=== PATIENT | male | born 1980 | race Caucasian/White ===

== ENCOUNTER 2021-04-30 11:07 | Outpatient (RCR) | payer OTHER, SELFPAY ==
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
--- NOTE | 2021-06-11 14:59 | PCPTNOTE ---
Mr. Jules attended a total of 2 treatment sessions from 04/30/21 to 05/02/21. He has failed to return to the clinic and has not contacted the clinic regarding his status. He will be discharged from our care. Refer to last daily note for pt. discharge status. Mike Vergara, MPT
== END 2021-05-02 15:27 | disposition home or self-care (01) ==
LOC: CHSPT 11:07
PROVIDERS: PCP Family Medicine; Visit Provider Family Medicine
DX: M54.2 Cervicalgia (principal)
CPT/HCPCS: 97014; 97110; 97140; 97161; G0283

== ENCOUNTER 2021-07-23 14:33 | Outpatient (CLI) | payer OTHER, SELFPAY ==
--- NOTE | ~2021-07-23 | XR_ITS ---
EXAMINATION: XR cervical spine 4-5V DATE: 07/23/2021 14:50 INDICATION: Neck pain. TECHNIQUE: 5 views of cervical spine were obtained. COMPARISON: None. FINDINGS: There is 4 degrees dextrocurvature of cervical spine. There is 2 mm retrolisthesis of C5 on C6. Vertebral body heights are normal. There is mildly decreased disc height at C5-C6. The facet lexi nts are unremarkable. No neural foraminal stenosis or central canal stenosis. No prevertebral soft ti ssue swelling. IMPRESSION: 1. Mild cervical spondylosis. Reviewed, dictated and finalized at location A.
== END 2021-07-23 14:34 | disposition home or self-care (01) ==
LOC: CHSIMG 14:36
PROVIDERS: PCP Family Medicine; Visit Provider Family Medicine
DX: M54.2 Cervicalgia (principal)
CPT/HCPCS: 72050

== ENCOUNTER 2022-01-16 17:00 | Outpatient (CLI) | payer OTHER, SELFPAY ==
--- NOTE | ~2022-01-16 | XR_ITS ---
EXAMINATION: XR chest 2V EXAM DATE: 01/16/2022 17:17 INDICATION: cough w/ SOB + pain in between shoulder blades. TECHNIQUE: Frontal and lateral projections of the chest obtained and reviewed. Comparison is made to prior examination from 08/28/2015. FINDINGS: The lungs are clear. There are no pleural effusions. The cardiomediastinal silhouette is within normal limits. There is no pneumothorax suspected. The bones and soft tissues are unremarkab le. IMPRESSION: Unremarkable chest x-ray exam. Reviewed, dictated and finalized at location G. LLIGENCE DIRECTOR
== END 2022-01-16 17:01 | disposition home or self-care (01) ==
LOC: CHSIMG 17:02
PROVIDERS: PCP Family Medicine; Visit Provider Family Medicine
DX: R05.9 Cough, unspecified (principal)
CPT/HCPCS: 71046

== ENCOUNTER 2023-06-23 14:52 | Outpatient (CLI) | payer OTHER, SELFPAY ==
--- NOTE | ~2023-06-23 | XR_ITS ---
EXAM: XR knee LT 3V DATE: 06/23/2023 15:15 HISTORY: M25.562 - Pain in left knee x1 year; worsening . COMPARISON: 02/15/2009, images only. FINDINGS: Normal mineralization. No fracture or dislocation. No lytic or blastic lesion. Moderate me dial joint space narrowing. Moderate medial and mild lateral and patellofemoral compartment osteophyt osis. Small volume joint fluid. No erosion or periosteal change. Soft tissues within normal limits. IMPRESSION: Tricompartmental left knee osteoarthritis, moderate in the medial compartment. Reviewed, dictated and finalized at location K. IMPRESSION: Tricompartmental left knee osteoarthritis, moderate in the medial c ompartment.
[2023-06-23 16:16] LABS: Basophils Percent Auto 1.2 % (0.0-1.0); Eosinophils Absolute Auto 0.13 K/mm3 (0.02-0.50); Eosinophils Percent Auto 1.6 % (1.0-6.0); Hematocrit 48.3 % (40.0-54.0); Hemoglobin 16.6 g/dL (14.0-18.0); Immature Granulocyte Absolute 0.11 K/mm3 (0.00-0.00); Immature Granulocyte Percent A 1.3 % (0.0-0.0); Lymphocytes Absolute Auto 1.96 K/mm3 (1.10-4.50); Lymphocytes Percent Auto 23.4 % (18.0-42.0); Mean Corpuscular HGB Conc 34.4 g/dL (32.0-36.0); Mean Corpuscular Hemoglobin 32.4 pg (27.0-31.0); Mean Corpuscular Volume 94.3 fL (78.0-102.0); Mean Platelet Volume 10.4 fl (8.7-11.0); Monocytes Absolute Auto 0.82 K/mm3 (0.10-0.90); Monocytes Percent Auto 9.8 % (2.0-11.0); Neutrophils Absolute Auto 5.3 K/mm3 (1.7-7.2); Neutrophils Percent Auto 62.7 % (50.0-70.0); Platelet Count Result 221 K/mm3 (150-420); Red Blood Count 5.12 M/mm3 (4.70-6.10); Red Cell Distribution Width 11.2 % (11.6-14.4); White Blood Count 8.4 K/mm3 (4.8-10.8)
[2023-06-23 16:35] LABS: Alanine Aminotransferase 148 U/L (16-63); Alkaline Phosphatase 138 U/L (46-116); Anion Gap 5 mmol/L (8-16); Aspartate Amino Transferase 68 U/L (15-37); Bilirubin,Total 0.9 mg/dL (0.00-1.00); Blood Urea Nitrogen 11 mg/dL (7-18); Calcium 9.2 mg/dL (8.5-10.1); Carbon Dioxide 33 mmol/L (21-32); Chloride 102 mmol/L (98-108); Cholesterol 214 mg/dL (0-200); Estimated Glomerular Filt Rate > 60; Glucose 145 mg/dL (70-99); HDL Direct 30 mg/dL (40-60); LDL Cholesterol Calculated 103 mg/dL (<130); Osmolality Calculated 292 mOsm/kg (285-295); Potassium 4.3 mmol/L (3.5-5.1); Sodium 140 mmol/L (136-145); Total Protein 7.6 g/dL (6.4-8.2); Triglycerides 404 mg/dL (0-150)
[2023-06-23 16:36] LABS: Thyroid Stimulating Hormone Reflex 1.54 u/IU/mL (0.36-3.74)
[2023-06-23 16:41] LABS: LDL Cholesterol Direct 123 mg/dL (0-130)
== END 2023-06-23 14:53 | disposition home or self-care (01) ==
LOC: CHSIMG 14:53
PROVIDERS: PCP Family Medicine; Visit Provider Family Medicine
DX: M17.12 Unilateral primary osteoarthritis, left knee (principal); F41.1 Generalized anxiety disorder; E11.9 Type 2 diabetes mellitus without complications; M25.562 Pain in left knee
CPT/HCPCS: 36415; 73562; 80053; 80061; 83721; 84443; 85025

== ENCOUNTER 2023-07-18 12:59 | Outpatient (CLI) | payer OTHER, SELFPAY ==
--- NOTE | 2023-08-06 13:09 | WPDPFTINT ---
PFT Procedure Performed PFT Procedure Performed Spirometry with Pre/Post Bronchodilator Plethysmography (Lung Vol) Diffusing Cap (DLCO) Flow Vol Loop PFT Interpretation DOS: 07/18/2023 REQUESTING: Dr. Hever Nuñez REASON FOR TESTING: shortness of breath PULMONARY FUNCTION TESTS Results are reliable and reproducible. Spirometry: FEV1 is 3.27 L, 88%, normal. FVC is 4.11 L, 89% predicted, normal. FEV1/FVC ratio 80%, normal. After bronchodilator there is a 5% increase in FEV1, 3.43 L, 92% predicted. There is a 5% increase in the FVC, 4.31 L, 93% predicted. The ratio is 80%. This is not statistically significant. Lung volumes: Total lung capacity is 6.15 L, 94% predicted, normal. Residual volume is 1.89 L, 96%, normal. RV /TLC is 31%, normal. Airway resistance 159%. This is above normal. Diffusion: DLCO is 31.3, 95% predicted, normal. DLCO/VA is 5.51, 130%, normal. Flow volume loop: Normal. IMPRESSION: This study shows normal spirometry without significant response to bronchodilator, normal lung volumes and normal diffusion. There are no prior studies to compare. Christy Mcgee MD
== END 2023-07-18 13:00 | disposition home or self-care (01) ==
LOC: CHSCARD 13:00
PROVIDERS: PCP Family Medicine; Visit Provider Family Medicine
DX: R06.00 Dyspnea, unspecified (principal); R06.89 Other abnormalities of breathing
CPT/HCPCS: 94060; 94726; 94729

== ENCOUNTER 2023-09-01 10:26 | Outpatient (CLI) | payer OTHER, SELFPAY ==
--- NOTE | 2023-09-01 10:29 | ECHO_ITS ---
Patient Info Name: Vinicio Jules Age: 43 years : 1980 Gender: Male Ht: 70 in Wt: 260 lbs BSA: 2.46 m2 HR: 97 bpm BP: 170 / 95 mmHg Heart Rhythm: Sinus Rhythm Technical Quality: Good Exam Date: 09/01/2023 10:21 AM Exam Location: [facility] Patient Status: Outpatient Admit Date: 09/01/2023 Staff Ordering Physician: Hever Nuñez DO Fiscal Services Director: Dali Bhatti RDCS Attending Provider: Hever Nuñez DO Referring Physician: Savannah HORTA; Exam Type: CA echo doppler color flow Study Info Indications - unspecified right bundle brunch block Complete two-dimensional, color flow and Doppler transthoracic echocardiogram is performed. Summary 1. Complete two-dimensional, color flow and Doppler transthoracic echocardiogram is performed. 2. Left ventricular chamber dimension is normal. 3. Left ventricular systolic function is normal, estimated at 65-70%. 4. There is mild concentric increased left ventricular wall thickness. 5. The left ventricular diastolic function is grade I diastolic dysfunction. 6. E/e' 12 is mildly elevated. 7. There is mild tricuspid valve regurgitation. 8. No pulmonary hypertension, estimated pulmonary arterial systolic pressure is 30 mmHg. 9. There is trivial pericardial effusion. Left Ventricle E/e' 12 is mildly elevated. Left ventricular chamber dimension is normal. Left ventricular systolic function is normal, estimated at 65-70%. There is mild concentric increased left ventricular wall thickness. The left ventricular diastolic function is grade I diastolic dysfunction. Right Ventricle Right ventricular systolic function is normal and with normal TAPSE 3.2 cm. Right ventricular chamber dimension is normal. Left Atria Left atrial chamber dimension is normal. Right Atria Right atrial chamber dimension is normal. Aortic Valve The aortic valve is trileaflet. There is no aortic valve stenosis. There is no aortic valve regurgitation. Pulmonic Valve There is no pulmonic regurgitation. Mitral Valve There is no mitral valve stenosis. There is no mitral valve regurgitation. Tricuspid Valve There is mild tricuspid valve regurgitation. No pulmonary hypertension, estimated pulmonary arterial systolic pressure is 30 mmHg. Pericardium/Pleural There is trivial pericardial effusion. Inferior Vena Cava Normal inferior vena cava with >50% collapse upon inspiration consistent with normal right atrial pressure, 5 mmHg. Aorta The aortic root size at the sinus of Valsalva is normal. Left Ventricular Outflow Tract Name Value Normal LVOT 2D LVOT Diameter 2.0 cm LVOT Doppler LVOT Peak Velocity 97 cm/s LVOT Peak Gradient 3 mmHg LVOT Mean Gradient 2 mmHg LVOT VTI 24 cm LVOT VTI/AV VTI Ratio 0.8 LVOT Stroke Volume 78 ml Pulmonic Valve Name Value Normal RVOT Doppler
== END 2023-09-01 10:27 | disposition home or self-care (01) ==
LOC: CHSIMG 10:27
PROVIDERS: PCP Family Medicine; Visit Provider Family Medicine
DX: R06.89 Other abnormalities of breathing (principal); R06.00 Dyspnea, unspecified; I50.9 Heart failure, unspecified; I45.10 Unspecified right bundle-branch block; I07.1 Rheumatic tricuspid insufficiency
CPT/HCPCS: 93306

== ENCOUNTER 2024-02-03 10:24 | Outpatient (CLI) | payer OTHER, SELFPAY ==
[2024-02-03 10:49] LABS: Basophils Absolute Auto 0.09 K/mm3 (0.00-0.10); Basophils Percent Auto 1.2 % (0.0-1.0); Eosinophils Absolute Auto 0.16 K/mm3 (0.02-0.50); Eosinophils Percent Auto 2.2 % (1.0-6.0); Hematocrit 46.7 % (40.0-54.0); Hemoglobin 16.4 g/dL (14.0-18.0); Immature Granulocyte Absolute 0.09 K/mm3 (0.00-0.00); Immature Granulocyte Percent A 1.2 % (0.0-0.0); Lymphocytes Absolute Auto 1.78 K/mm3 (1.10-4.50); Lymphocytes Percent Auto 24.7 % (18.0-42.0); Mean Corpuscular HGB Conc 35.1 g/dL (32-36); Mean Corpuscular Hemoglobin 31.7 pg (27.0-31.0); Mean Corpuscular Volume 90.2 fL (78.0-102.0); Mean Platelet Volume 9.9 fl (8.7-11.0); Monocytes Absolute Auto 0.74 K/mm3 (0.10-0.90); Monocytes Percent Auto 10.3 % (2.0-11.0); Neutrophils Absolute Auto 4.35 K/mm3 (1.70-7.20); Neutrophils Percent Auto 60.4 % (50.0-70.0); Platelet Count Result 200 K/mm3 (150-420); Red Blood Count 5.18 M/mm3 (4.70-6.10); Red Cell Distribution Width 11.1 % (11.6-14.4); White Blood Count 7.2 K/mm3 (4.8-10.8)
[2024-02-03 12:08] LABS: Alanine Aminotransferase 179 U/L (16-63); Anion Gap 12 mmol/L (8-16); Blood Urea Nitrogen 7 mg/dL (7-18); Calcium 8.7 mg/dL (8.5-10.1); Carbon Dioxide 29 mmol/L (21-32); Chloride 99 mmol/L (98-108); Estimated Glomerular Filt Rate > 60; Potassium 3.6 mmol/L (3.5-5.1); Sodium 140 mmol/L (136-145)
[2024-02-03 12:48] LABS: Alkaline Phosphatase 151 U/L (46-116); Aspartate Amino Transferase 77 U/L (15-37); Folic Acid 14.8 ng/mL (8.6->20); Glucose 279 mg/dL (70-99); Osmolality Calculated 298 mOsm/kg (285-295); Total Protein 7.3 g/dL (6.4-8.2); Vitamin B12 502 pg/mL (193-986)
[2024-02-03 12:53] LABS: Thyroid Stimulating Hormone Reflex 3.18 u/IU/mL (0.36-3.74)
[2024-02-08 22:33] LABS: Vitamin D 25 Hydroxy 12 ng/mL (30-100)
== END 2024-02-03 10:25 | disposition home or self-care (01) ==
LOC: CHSLAB 10:26
PROVIDERS: PCP Family Medicine; Visit Provider Family Medicine
DX: E53.8 Deficiency of other specified B group vitamins (principal); E03.9 Hypothyroidism, unspecified; F41.8 Other specified anxiety disorders
CPT/HCPCS: 36415; 80053; 82306; 82607; 82746; 84443; 85025

== ENCOUNTER 2024-02-06 16:09 | Emergency (ER) | payer OTHER, SELFPAY ==
[2024-02-06 16:10] VITALS: BP 162/125; PULSE 102; RESP 19; TEMP 36.5; O2SAT 95
--- NOTE | 2024-02-06 16:21 | ED.GENADULT ---
HPI - General Adult General Chief complaint: Unspecified <Madhuri Henry MD - Last Filed: 02/07/24 12:22> Stated complaint: high BP <Madhuri Henry MD - Last Filed: 02/07/24 12:22> Time Seen by Provider: 02/06/24 16:21 <Madhuri Henry MD - Last Filed: 02/07/24 12:22> History of Present Illness HPI narrative: Patient is a 43 year old male with history of HTN, anxiety, alcohol use disorder here with high blood pressure reading. He notes that he recently saw his PCP where he was started on multiple medications including lisinopril for his blood pressure. He took the first dose today around noon and went to [facility] to run errands. Patient then took his blood pressure at the machine at [facility] and it was 180/123. He notes that he got afraid that his blood pressure was high and started experiencing some palpitations. This prompted him to come into the ER for evaluation. Currently denying chest pain, shortness of breath. Denies history of alcohol withdrawal, notes he last drank 2 days ago. No history of withdrawal seizures. <Madhuri Henry MD - Last Filed: 02/07/24 12:22> Related Data Allergies/adverse reactions: Allergies Allergy/AdvReac Type Severity Reaction Status Date / Time Penicillins Allergy Severe Hives Verified 02/03/24 07:29 <Madhuri Henry MD - Last Filed: 02/07/24 12:22> Review of Systems Review of Systems: All systems reviewed & are unremarkable except as noted in HPI and below <Madhuri Henry MD - Last Filed: 02/07/24 12:22> [facility] Past Medical History Medical History: Medical History (Updated 02/07/24 @ 00:02 by Vaishali Lagunas) RICH (generalized anxiety disorder) Left breast mass <Madhuri Henry MD - Last Filed: 02/07/24 12:22> Surgical History Surgical History: Surgical History History of colostomy History of colostomy reversal <Madhuri Henry MD - Last Filed: 02/07/24 12:22> Family History Family History: Family History (Updated 06/23/23 @ 14:15 by Bettie Esparza CMA) Father Acute myocardial infarction Grandparent Breast cancer Other Diabetes mellitus Heart disease <Madhuri Henry MD - Last Filed: 02/07/24 12:22> Social History Social History: Social History (Updated 06/23/23 @ 14:19 by Bettie Esparza [facility]) Smoking status: Never smoker Alcohol intake: current Lack of Transportation: No Lack of Food: Never True Current Housing: I Have Housing Concerned About Future Housing: No Difficulty Paying Gas/Electric Bills: No Difficulty Paying for Meds: No Currently Unemployed: YES Education: High School Diploma/GED Difficulty w/ Childcare or Family Care: No <Madhuri Henry MD - Last Filed: 02/07/24 12:22> Exam Narrative: GENERAL: Well-appearing, well-nourished, and in no acute distress. HEAD: Normocephalic, atraumatic. EYES: PERRLA and EOMI. ENT: Nares clear. Mucous membranes moist. NECK: Supple. CHEST: Clear to auscultation. No respiratory distress. HEART: Tachycardia. Normal peripheral pulses. ABDOMEN: Soft, nontender, nondistended. EXTREMITIES: Normal range of motion. No edema. SKIN: Warm, dry, no rash. NEURO: No focal deficits. Alert and oriented x3. PSYCH: Normal mood and affect. <Madhuri Henry MD - Last Filed: 02/07/24 12:22> Course Course Emergency Course: Chart review performed, patient here with high blood pressure readings. He was hypertensive in triage with mild tachycardia, otherwise vitals within normal limits. PCP note from 02/03/2024 reviewed. He had been seen for anxiety, insomnia. He does reportedly drink a pt of vodka and a 6 pack daily. A mammogram was ordered for the breast lump, a colonoscopy was ordered for hematochezia and weight loss. he was started on lisinopril, gabapentin, naltrexone and amitriptyline. Blood pressures during that visit were 150/100 and 145/90. Patient seen evaluated, nontoxic appearing. He has
[2024-02-06 16:30] VITALS: BP 168/113
--- NOTE | 2024-02-06 16:35 | ECG_ITS ---
Measurements Intervals [place] Rate: 95 P: 56 AL: 156 QRS: -39 QRSD: 97 T: 16 QT: 358 QTc: 451 Interpretive Statements SINUS RHYTHM LEFT AXIS DEVIATION INCOMPLETE RIGHT BUNDLE BRANCH BLOCK LEFT VENTRICULAR HYPERTROPHY WITH ST-T CHANGE CANNOT RULE OUT SEPTAL INFARCT, AGE INDETERMINATE BORDERLINE T WAVE ABNORMALITY- ANTEROLAT/INF LEADS ABNORMAL ECG NO PREVIOUS ECG AVAILABLE FOR COMPARISON Electronically Signed On 02-06-2024 16:57:42 CDT by Edilson Estevez D.O.
[2024-02-06 17:00] VITALS: BP 143/102; PULSE 96; RESP 20
[2024-02-06 17:16] VITALS: BP 148/104
[2024-02-06 17:31] VITALS: BP 156/98; PULSE 75; RESP 20; O2SAT 97
== END 2024-02-06 17:31 | disposition home or self-care (01) ==
PROVIDERS: Emergency Provider Family Medicine; PCP Family Medicine
DX: I10 Essential (primary) hypertension (principal); R00.2 Palpitations
CPT/HCPCS: 93005; 99283

== ENCOUNTER 2024-02-23 08:40 | Outpatient (CLI) | payer OTHER, SELFPAY ==
--- NOTE | ~2024-02-23 | MMUS_ITS ---
EXAMINATION: MM diagnostic isaiah LT w naresh, US breast LT limited HISTORY: Palpable left breast abnormality TECHNIQUE: Additional 3-D tomosynthesis images of the left breast were performed and synthetic 2-D im ages were generated. CAD analysis was submitted and interpreted. High resolution Limited left breast ultrasound was performed. COMPARISON: No prior studies for comparison. BREAST PARENCHYMAL COMPOSITION: Not dense: There are scattered areas of fibroglandular density. FINDINGS: MAMMOGRAPHIC FINDINGS: There is bilateral symmetric gynecomastia. No evidence for malignancy in either breast. ULTRASOUND: Limited left breast ultrasound: Normal heterogeneous echotexture without focal solid or cystic mass. IMPRESSION: 1. No evidence for malignancy in the left breast. 2. Routine yearly screening mammogram and regular clinical breast examination are recommended. BI-RADS Category 1: Negative Reviewed, dictated and finalized at location A. IMPRESSION: 1. No evidence for malignancy in the left breast. 2. Routine yearly screening mammogram and regular clinical breast examination a re recommended. BI-RADS Category 1: Negative
== END 2024-02-23 08:41 | disposition home or self-care (01) ==
LOC: CHSIMG 08:41
PROVIDERS: PCP Family Medicine; Visit Provider Family Medicine
DX: N63.23 Unspecified lump in the left breast, lower outer quadrant (principal)
CPT/HCPCS: 76642; 77061; 77065; G0279

== ENCOUNTER 2024-04-21 14:19 | Outpatient (RCR) | payer OTHER, SELFPAY ==
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
--- NOTE | 2024-04-21 15:09 | OPREHPOC ---
Outpatient Therapy Plan of Care This is a Multidisciplinary Plan of Care that may contain components documented by all disciplines (PT, OT, and ST.) PT Problem 1 PT Problem #1 Knowledge Deficit PT Goal 1 Goal Pt. will be independent with a HEP addressing strength and postural awareness Target Visit 2 PT Problem 2 PT Problem #2 Impaired Functional Mobil PT Goal 1 Goal Pt. will demonstrate improve postural awareness in sitting with improved shoulder position noted. Target Visit 8 PT Problem 3 PT Problem #3 Impaired Range of Motion PT Goal 1 Goal Pt. will demonstrate 85 degrees bilateral active cervical rotation. Target Visit 8 PT Problem 4 PT Problem #4 Pain PT Goal 1 Goal Pt. will report being able to sleep throughout the night without pain disturbance. Pt. will report pain levels at 2/10 at worst in a 2 week period.
--- NOTE | 2024-04-29 16:03 | PCPTNOTE ---
Patient cancelled session today. He states his back is hurting, and will maybe be going to the ER.
--- NOTE | 2024-05-10 13:08 | PCPTNOTE ---
Patient cancelled session today. He reports he started a new medication, and is having side effects from it.
--- NOTE | 2024-05-13 11:52 | PCPTNOTE ---
Patient called & cancelled scheduled appointment this date due to [ started a new blood pressure med and is having issues.]
--- NOTE | 2024-05-19 11:45 | PCPTNOTE ---
Patient did not show up for scheduled appointment this date. -Ursula Garza, PT
--- NOTE | 2024-08-09 07:18 | PCPTNOTE ---
Mr. Jules attended a total of 4 treatment sessions from 04/21/24 to 05/06/24. He provided decreasing reports of pain through the duration of his treatment. Treatment had consisted of manual techniques and therapeutic exercise to improve posture, strength, ROM and to decrease pain. He has failed to return to the clinic and will be discharged from our care at this time. Mike Vergara, MPT
== END 2024-05-06 10:45 | disposition home or self-care (01) ==
LOC: CHSPT 14:19
PROVIDERS: Visit Provider Family Medicine
DX: M54.2 Cervicalgia (principal)
CPT/HCPCS: 97110; 97140; 97161

== ENCOUNTER 2024-05-25 10:06 | Emergency (ER) | payer OTHER, SELFPAY ==
--- NOTE | ~2024-05-25 | XR_ITS ---
EXAMINATION: XR knee LT 3V DATE: 05/25/2024 10:37 INDICATION: Medial left knee pain. TECHNIQUE: 3 views of left knee were obtained. COMPARISON: Left knee radiographs 06/23/2023 FINDINGS: Bone alignment is normal. No fracture. There is moderate osteoarthritis of medial compartme nt and mild osteoarthritis of lateral and patellofemoral compartments. There is a small knee joint ef fusion. There is an loose body in the knee joint posteriorly. IMPRESSION: 1. Moderate left knee osteoarthritis. 2. Small left knee joint effusion with loose body. Reviewed, dictated and finalized at location A.
[2024-05-25 10:11] VITALS: BP 168/111; PULSE 103; RESP 16; TEMP 36.8; O2SAT 97
[2024-05-25 10:22] VITALS: BP 168/111; PULSE 103; RESP 16; TEMP 36.8; O2SAT 97
--- NOTE | 2024-05-25 10:28 | ED.EXTPRO ---
HPI - Extremity Problem General Chief complaint: Extremity Problem,Nontraumatic Stated complaint: left knee pain Time Seen by Provider: 05/25/24 10:08 Source: patient Mode of arrival: ambulatory Limitations: no limitations History of Present Illness HPI Narrative: Patient is a 43-year-old male with right elbow, left knee and right ankle pains. He has seen his primary doctor for some of these complaints. He also is noncompliant with his blood pressure medicine. No particular recent injury to these areas. MD Complaint: extremity pain Onset (ago): week(s) (2) Pain Consistency: constant Location: left, lower extremity and knee Severity scale (1-10): 6 Quality: burning, stabbing, aching and sharp Radiation: none Relieving factors: nothing Exacerbating factors: range of motion, walking and exertion Associated symptoms: denies other symptoms Related Data Allergies Allergy/AdvReac Type Severity Reaction Status Date / Time Penicillins Allergy Severe Hives Verified 05/25/24 10:10 Review of Systems Review of Systems: All systems reviewed & are unremarkable except as noted in HPI and below Constitutional: Constitutional: Reports no additional constitutional complaints Eyes: Eyes: Reports no additional eye complaints ENT: Reports system reviewed and no additional complaints, except as documented Cardiovascular: Cardiovascular: Reports no additional cardiovascular complaints Respiratory: Respiratory: Reports no additional respiratory complaints Gastrointestinal: Gastrointestinal: Reports no additional gastrointestinal complaints Genitourinary: Genitourinary: Reports no additional male genitourinary complaints Musculoskeletal: Musculoskeletal: Reports no additional musculoskeletal complaints Integumentary/Breasts: Skin/Breast: Reports system reviewed and no additional complaints, except as docu Neurologic: Reports system reviewed and no additional complaints, except as documented Psychiatric: Psychiatric: Reports no additional psychiatric complaints Endocrine: Endocrine: Reports no additional endocrine complaints Hematologic/Lymphatic: Hematologic/Lymphatic: Reports no additional hematologic/lymphatic complaints Allergic/Immunologic: Allergic/Immunologic: Reports no additional allergic/immunologic complaints PMF Past Medical History Medical History RICH (generalized anxiety disorder) Left breast mass Surgical History Surgical History History of colostomy History of colostomy reversal Family History Family History Father Acute myocardial infarction Grandparent Breast cancer Other Diabetes mellitus Heart disease Social History Social History Smoking status: Never smoker Alcohol intake: current Lack of Transportation: No Lack of Food: Never True Current Housing: I Have Housing Concerned About Future Housing: No Difficulty Paying Gas/Electric Bills: No Difficulty Paying for Meds: No Currently Unemployed: YES Education: High School Diploma/GED Difficulty w/ Childcare or Family Care: No Exam Const: General: healthy appearing Nutritional Appearance: well nourished Orientation/consciousness: patient oriented x3 HENMT: Head: normal to inspection Ears: external ears normal Face/Nose/Sinus: Normal external nose present Eyes: Conjunctivae: conjunctivae normal Pupils: Equal, round and reactive pupils present EOM: EOMs intact bilaterally Neck: Neck: normal visual inspection Chest: Chest palpation & inspection: normal inspection of the chest Resp: Effort & Inspection: normal respiratory effort and not labored Auscultation: clear to auscultation bilaterally Cardio: Rate: regular rate Rhythm: regular rhythm Heart sounds: no murmurs GI: Inspection: non-dis
[2024-05-25] MEDS: KETOROLAC (*BKC) 60 MG/2 ML VIAL IM (10:39)
[2024-05-25 11:05] VITALS: BP 138/96; PULSE 75; RESP 18; O2SAT 98
== END 2024-05-25 11:05 | disposition home or self-care (01) ==
PROVIDERS: Emergency Provider Emergency Medicine; PCP Family Medicine
DX: M77.51 Other enthesopathy of right foot and ankle (principal); M70.52 Other bursitis of knee, left knee; M70.31 Other bursitis of elbow, right elbow
CPT/HCPCS: 73562; 96372; 99283; J1885

== ENCOUNTER 2024-06-18 12:17 | Emergency (ER) | payer OTHER, SELFPAY ==
[2024-06-18 12:17] VITALS: BP 164/108; PULSE 95; RESP 17; TEMP 36.4; O2SAT 97
--- NOTE | 2024-06-18 12:41 | PC.NURSE ---
Patient states he is unsure what medications he actually suppose to be on at this time. RN spoke with Dr. Velasco office to confirm medications. Patient is suppose to be taking his metoprolol 25mg BID. and lisinopril/HCTZ 20/25 1 tablet daily. Patient is unsure if he threw away his Lisinopril/HCTZ away. Per Dr. Velasco office tell patient to let them know if he needs a refill and they will call it in. Patient made aware and verbalized understanding. ERP Dr. Almanzar made aware of findings.
[2024-06-18 12:45] VITALS: BP 147/108; PULSE 76; RESP 16; O2SAT 95
--- NOTE | 2024-06-18 12:56 | ED.EXTPRO ---
HPI - Extremity Problem General Chief complaint: Extremity Problem,Nontraumatic Stated complaint: knee pain, HTN Time Seen by Provider: 06/18/24 12:18 Source: patient Mode of arrival: ambulatory Limitations: no limitations History of Present Illness HPI Narrative: patient has recurrent left knee pain. He did not take all the medicine as prescribed last visit. Also he is noncompliant with his blood pressure medicine. He is requesting a few days off work to relax with the left lower extremity pain. He asked for pain control today too. MD Complaint: extremity pain Onset (ago): week(s) (1) Pain Consistency: constant Location: left and knee Severity scale (1-10): 6 Quality: sharp Radiation: none Relieving factors: nothing Exacerbating factors: nothing Associated symptoms: denies other symptoms Related Data Allergies Allergy/AdvReac Type Severity Reaction Status Date / Time Penicillins Allergy Severe Hives Verified 06/18/24 12:17 Review of Systems Review of Systems: All systems reviewed & are unremarkable except as noted in HPI and below Constitutional: Constitutional: Reports no additional constitutional complaints Eyes: Eyes: Reports no additional eye complaints ENT: Reports system reviewed and no additional complaints, except as documented Cardiovascular: Cardiovascular: Reports no additional cardiovascular complaints Respiratory: Respiratory: Reports no additional respiratory complaints Gastrointestinal: Gastrointestinal: Reports no additional gastrointestinal complaints Genitourinary: Genitourinary: Reports no additional male genitourinary complaints Musculoskeletal: Musculoskeletal: Reports no additional musculoskeletal complaints Integumentary/Breasts: Skin/Breast: Reports system reviewed and no additional complaints, except as docu Neurologic: Reports system reviewed and no additional complaints, except as documented Psychiatric: Psychiatric: Reports no additional psychiatric complaints Endocrine: Endocrine: Reports no additional endocrine complaints Hematologic/Lymphatic: Hematologic/Lymphatic: Reports no additional hematologic/lymphatic complaints Allergic/Immunologic: Allergic/Immunologic: Reports no additional allergic/immunologic complaints PMFSH Past Medical History Medical History RICH (generalized anxiety disorder) Left breast mass Surgical History Surgical History History of colostomy History of colostomy reversal Family History Family History Father Acute myocardial infarction Grandparent Breast cancer Other Diabetes mellitus Heart disease Social History Social History Smoking status: Never smoker Alcohol intake: current Lack of Transportation: No Lack of Food: Never True Current Housing: I Have Housing Concerned About Future Housing: No Difficulty Paying Gas/Electric Bills: No Difficulty Paying for Meds: No Currently Unemployed: YES Education: High School Diploma/GED Difficulty w/ Childcare or Family Care: No Exam Const: General: healthy appearing Nutritional Appearance: well nourished Orientation/consciousness: patient oriented x3 HENMT: Head: normal to inspection Ears: external ears normal Face/Nose/Sinus: Normal external nose present Eyes: Conjunctivae: conjunctivae normal Pupils: Equal, round and reactive pupils present EOM: EOMs intact bilaterally Neck: Neck: normal visual inspection Chest: Chest palpation & inspection: normal inspection of the chest Resp: Effort & Inspection: normal respiratory effort and not labored Auscultation: clear to auscultation bilaterally Cardio: Rate: regular rate Rhythm: regular rhythm Heart sounds: no murmurs GI: Inspection: non-distended GI Palp: Yes Soft to palpation, No Te
[2024-06-18] MEDS: KETOROLAC (*BKC) 60 MG/2 ML VIAL IM (12:58)
[2024-06-18 13:17] VITALS: BP 147/91; PULSE 75; RESP 18; TEMP 36.7; O2SAT 97
== END 2024-06-18 13:17 | disposition home or self-care (01) ==
PROVIDERS: Emergency Provider Emergency Medicine; PCP Family Medicine
DX: M70.52 Other bursitis of knee, left knee (principal)
CPT/HCPCS: 96372; 99283; J1885

== ENCOUNTER 2024-06-23 17:05 | Outpatient (CLI) | payer BC, SELFPAY ==
--- NOTE | ~2024-06-23 | XR_ITS ---
XR ankle RT min 3V Ordering provider: Julio Cesar Sequeira APRN History: . M25.571 - Pain in right ankle and joints of right foot . Comparison: None. FINDINGS: BONES: No acute fracture or dislocation. Postoperative changes in the medial malleolus. JOINT SPACES: Normal. SOFT TISSUES: Normal. IMPRESSION: No acute osseous abnormality of the right ankle. Reviewed, dictated and finalized at location A.
--- NOTE | ~2024-06-23 | XR_ITS ---
EXAMINATION: XR lumbar spine 2-3V DATE: 06/23/2024 17:40 INDICATION: Low back pain TECHNIQUE: Anteroposterior and lateral views of the lumbar spine, and cone-down lateral view of the l umbosacral junction were obtained. COMPARISON: None. FINDINGS: 7 degrees lumbar levocurvature with minimal rotational component. There is straightening of the sugey l lumbar lordosis. Vertebral body heights are normal. Mild disc height loss at L5-S1 and at the right side of L4-L5. Mild to moderate lower lumbar facet osteoarthritis. IMPRESSION: 1. Mild lumbar levocurvature with mild lower lumbar spondylosis. Reviewed, dictated and finalized at location A.
== END 2024-06-23 17:06 | disposition home or self-care (01) ==
PROVIDERS: PCP Family Medicine; Visit Provider Nurse Practitioner Family
DX: M54.50 Low back pain, unspecified (principal); M25.571 Pain in right ankle and joints of right foot; M43.06 Spondylolysis, lumbar region; M41.86 Other forms of scoliosis, lumbar region
CPT/HCPCS: 72100; 73610

== ENCOUNTER 2024-07-29 15:51 | Outpatient (CLI) | payer BC, SELFPAY ==
[2024-07-29 16:02] LABS: Hemoglobin 15.1 g/dL (14.0-18.0); Mean Corpuscular HGB Conc 35.1 g/dL (32-36); Mean Corpuscular Hemoglobin 32.3 pg (27.0-31.0); Mean Corpuscular Volume 91.9 fL (78.0-102.0); Mean Platelet Volume 10.3 fl (8.7-11.0); Platelet Count Result 244 K/mm3 (150-420); Red Blood Count 4.68 M/mm3 (4.70-6.10); Red Cell Distribution Width 10.9 % (11.6-14.4); White Blood Count 9.9 K/mm3 (4.8-10.8)
[2024-07-30 09:11] LABS: Alanine Aminotransferase 66 U/L (6-50); Albumin Level 4.4 g/dL (3.5-5.1); Alkaline Phosphatase 84 U/L (38-126); Anion Gap 10 mmol/L (4-12); Aspartate Amino Transferase 46 U/L (17-59); Bilirubin,Total 1.2 mg/dL (0.2-1.3); Blood Urea Nitrogen 16 mg/dL (9-20); Calcium 9.8 mg/dL (8.4-10.2); Carbon Dioxide 31 mmol/L (22-30); Chloride 97 mmol/L (98-107); Estimated Glomerular Filt Rate > 60; Glucose 195 mg/dL (65-110); Osmolality Calculated 292 mOsm/kg (285-295); Potassium 3.5 mmol/L (3.4-5.0); Sodium 138 mmol/L (137-145)
== END 2024-07-29 15:52 | disposition home or self-care (01) ==
LOC: CHSLAB 15:53
PROVIDERS: PCP Nurse Practitioner Family; Visit Provider Nurse Practitioner Family
DX: R74.8 Abnormal levels of other serum enzymes (principal); F10.10 Alcohol abuse, uncomplicated
CPT/HCPCS: 36415; 80053; 85027

== ENCOUNTER 2024-08-19 14:49 | Outpatient (CLI) | payer BC, SELFPAY ==
--- NOTE | ~2024-08-19 | US_ITS ---
EXAMINATION: US abdomen limited DATE: 08/19/2024 15:12 INDICATION: R74.8 - Abnormal levels of other serum enzymes TECHNIQUE: Multiple grayscale and Doppler ultrasound images of limited portions of the abdomen were o btained. COMPARISON: None available. FINDINGS: The visualized portions of the pancreas are normal. The liver is normal size, with increase d echogenicity. No surface nodularity. Normal hepatopetal flow in the main portal vein. The gallbladd er is normal with no abnormal wall thickening, pericholecystic fluid or stones. The common bile duct measures 4 mm. There was no sonographic Hernandez sign. IMPRESSION: Echogenic liver, most commonly due to steatosis but also can be seen with hepatitis and fibrosis. Reviewed, dictated and finalized at location K. IMPRESSION: Echogenic liver, most commonly due to steatosis but also can be seen with hepat itis and fibrosis.
== END 2024-08-19 14:50 | disposition home or self-care (01) ==
LOC: CHSIMG 14:50
PROVIDERS: PCP Family Medicine; Visit Provider Nurse Practitioner Family
DX: F10.10 Alcohol abuse, uncomplicated (principal); R74.8 Abnormal levels of other serum enzymes; R93.2 Abnormal findings on diagnostic imaging of liver and biliary tract
CPT/HCPCS: 76705

== ENCOUNTER 2024-08-26 09:13 | Emergency (ER) | payer BC, SELFPAY ==
[2024-08-26 09:14] VITALS: BP 136/85; PULSE 69; RESP 18; TEMP 36.4; O2SAT 96
--- NOTE | 2024-08-26 09:21 | PC.NURSE ---
covid test administered sent to lab
[2024-08-26 09:22] VITALS: O2SAT 97
[2024-08-26 10:15] LABS: Strep Group A RT-PCR NOT DETECTED (Negative)
[2024-08-26 10:24] LABS: SARS-CoV-2 RNA PCR Negative (Negative)
--- NOTE | 2024-08-26 10:27 | ED.URI ---
HPI - URI/Sore Throat General Chief Complaint: Upper Respiratory Infection Stated Complaint: sick Time Seen by Provider: 08/26/24 09:48 Source: patient Mode of arrival: ambulatory Limitations: no limitations History of Present Illness HPI Narrative: This is a 44-year-old male with a 2 day history of cough congestion clear nasal discharge no fever chills no nausea vomiting with no shortness of breath no audible wheezing. MD elicited complaint: cough, sore throat, nasal congestion and sinus pain Onset (ago): day(s) Consistency: constant Severity: mild Related Data Allergies Allergy/AdvReac Type Severity Reaction Status Date / Time Penicillins Allergy Severe Hives Verified 08/20/24 11:27 Review of Systems Review of Systems: All systems reviewed & are unremarkable except as noted in HPI and below PMFSH Past Medical History Medical History Bowel perforation Depression with anxiety Elevated liver enzymes Epigastric pain ETOH abuse RICH (generalized anxiety disorder) GERD (gastroesophageal reflux disease) Hematochezia Left breast mass RBBB (right bundle branch block) Uncontrolled hypertension Surgical History Surgical History History of colostomy History of colostomy reversal Family History Family History Father Acute myocardial infarction in sleep from heart attack Grandparent Breast cancer Other Colon cancer Other Diabetes mellitus Heart disease Social History Social History Smoking packs per day: 1 Smoking cigarettes per day: 20.0 Years smoked: 5 Smoking pack-years: 5.00 Smoking status: Former smoker Tobacco type: cigarettes Alcohol intake: current Drinks per week: 14 Alcohol use details: DRINKS ON WEEKENDS, MULTIPLE BEER AND VODKA, PRIOR PT DRANK DAILY Substance use: never Substance use type: does not use Lack of Transportation: No Lack of Food: Never True Current Housing: I Have Housing Concerned About Future Housing: No Difficulty Paying Gas/Electric Bills: No Difficulty Paying for Meds: No Currently Unemployed: YES Education: High School Diploma/GED Difficulty w/ Childcare or Family Care: No Living arrangements: with family Spiritual care concerns: No Exam Const: General: healthy appearing and no acute distress Nutritional Appearance: well nourished Orientation/consciousness: patient oriented x3 Limitations: no limitations HENMT: Head: normal to inspection Other: Sinus congestion and pressure with postnasal drip Neck: Neck: normal visual inspection Chest: Chest palpation & inspection: normal inspection of the chest Resp: Effort & Inspection: normal respiratory effort Auscultation: clear to auscultation bilaterally Cardio: Rate: regular rate Rhythm: regular rhythm GI: GI Palp: Yes Soft to palpation Auscultation: normal bowel sounds Course Course Emergency Course: strep negative, COVID RSV and influenza reviewed with patient Vital Signs Vital signs: Vital Signs Temperature 36.4 C L 08/26/24 09:14 Pulse Rate 69 08/26/24 09:14 Respiratory Rate 18 08/26/24 09:14 Blood Pressure 136/85 08/26/24 09:14 Pulse Oximetry 96 08/26/24 09:14 Oxygen Delivery Room Air 08/26/24 09:14 Temperature 36.4 C L 08/26/24 10:41 Pulse Rate 69 08/26/24 10:41 Respiratory Rate 18 08/26/24 10:41 Blood Pressure 136/85 08/26/24 10:41 Pulse Oximetry 97 08/26/24 10:41 Oxygen Delivery Room Air 08/26/24 10:41 MDM - URI/Sore Throat Lab Data Labs: Lab Results 08/26/24 Range/Units 09:23 Influenza A (RT-PCR) Negative (Negative) Influenza B (RT-PCR) Negative (Negative) RSV (RT-PCR) Negative (Negative) SARS-CoV-2 RNA (RT-PCR) Negative (Negative)
[2024-08-26 10:32] LABS: Influenza A QL RT-PCR Negative (Negative); Influenza B QL RT-PCR Negative (Negative); RSV RNA, RT-PCR Negative (Negative)
[2024-08-26 10:41] VITALS: BP 136/85; PULSE 69; RESP 18; TEMP 36.4; O2SAT 97
== END 2024-08-26 10:41 | disposition home or self-care (01) ==
PROVIDERS: Emergency Provider Emergency Medicine; PCP Family Medicine
DX: J32.9 Chronic sinusitis, unspecified (principal); I10 Essential (primary) hypertension; Z87.891 Personal history of nicotine dependence; Z20.822 Contact with and (suspected) exposure to COVID-19
CPT/HCPCS: 87637; 87651; 99283

== ENCOUNTER 2024-09-03 02:57 | Day surgery (SDC) | payer BC, SELFPAY ==
[2024-08-20 11:44] VITALS: BMI 32.8
[2024-09-03 10:47] VITALS: BP 140/85; PULSE 71; RESP 20; TEMP 36.1; O2SAT 97; BMI 31.7
[2024-09-03] MEDS: LACTATED RINGERS 1,000 ML 150 ML IV CONT (10:57)
--- NOTE | 2024-09-03 12:17 | PM.HPGS ---
History of Present Illness History of Present Illness Consent: Risks, benefits, and alternatives have been discussed and questions answered. Patient agrees to proceed with procedure. Chief complaint: Melena, Perforation intestine, epigastric pain Narrative: Vinicio Jules Jr. is a 44 year old male here for first egd and colonoscopy, had bowel perforation years ago. Recent blood in stools and burping, using tums prn Review of Systems Review of Systems: All systems reviewed & are unremarkable except as noted in HPI and below PMFSH Past Medical History Medical History (Updated 09/03/24 @ 12:18 by Deyvi Kline MD) Bowel perforation Depression with anxiety Elevated liver enzymes Epigastric pain ETOH abuse Functional burping disorder RICH (generalized anxiety disorder) GERD (gastroesophageal reflux disease) Hematochezia Left breast mass RBBB (right bundle branch block) Uncontrolled hypertension Surgical History Surgical History History of colostomy History of colostomy reversal Family History Family History Father Acute myocardial infarction in sleep from heart attack Grandparent Breast cancer Other Colon cancer Other Diabetes mellitus Heart disease Social History Social History Smoking packs per day: 1 Smoking cigarettes per day: 20.0 Years smoked: 5 Smoking pack-years: 5.00 Smoking status: Former smoker Tobacco type: cigarettes Alcohol intake: current Drinks per week: 14 Alcohol use details: DRINKS ON WEEKENDS, MULTIPLE BEER AND VODKA, PRIOR PT DRANK DAILY Substance use: never Substance use type: does not use Lack of Transportation: No Lack of Food: Never True Current Housing: I Have Housing Concerned About Future Housing: No Difficulty Paying Gas/Electric Bills: No Difficulty Paying for Meds: No Currently Unemployed: YES Education: High School Diploma/GED Difficulty w/ Childcare or Family Care: No Living arrangements: with family Spiritual care concerns: No Meds Home Medications and Allergies Home Medications Medication Instructions Recorded Confirmed Type lisinopril 20 1 tablet PO DAILY #90 tabs 06/25/24 09/03/24 Rx mg-hydrochlorothiazide 25 mg tablet metoprolol tartrate 25 mg tablet 20 mg PO BID 09/03/24 09/03/24 History multivit with minerals-iron 18 1 tablet PO DAILY 09/03/24 09/03/24 History mg-folic ac 400 mcg-vit K 25 mcg tablet (Adults Multivitamin) Allergies Allergy/AdvReac Type Severity Reaction Status Date / Time Penicillins Allergy Severe Hives Verified 09/03/24 10:45 Vital Signs Vital Signs - 24 hr 09/03/24 10:47 Temperature 96.9 F L Pulse Rate 71 Respiratory Rate 20 Blood Pressure 140/85 Pulse Oximetry 97 Oxygen Delivery Room Air Exam Const: General: comfortable and no acute distress HENMT: Face/Nose/Sinus: Normal nares present Eyes: General: appearance normal, both eyes and all related structures Neck: Neck: no JVD Resp: Auscultation: clear to auscultation bilaterally Cardio: Rate: regular rate Rhythm: regular rhythm GI: Inspection: non-distended GI Palp: Yes Soft to palpation Skin: General skin exam: normal color Neuro: General: gait normal Speech: normal speech Extrem: General: normal to inspection Psych: Mental Status: mental status grossly normal Assessment and Plan Assessment and plan (1) GERD (gastroesophageal reflux disease): Code(s): K21.9 - Gastro-esophageal reflux disease without esophagitis Status: Acute Assessment and Plan: egd (2) Hematochezia: Code(s): K92.1 - Melena Status: Acute Assessment and Plan: colonoscopy (3) Functional burping disorder: Code(s): R14.2 - Eructation Status: Acute
--- NOTE | 2024-09-03 12:18 | WPDANESEPPF ---
Anes - Initial Pre Proc Eval Procedure: Operation Date: 09/03/24 12:30 Proposed Procedures p Esophagogastroduodenoscopy & Colonoscopy - Deyvi Kline MD Date/Time: 09/03/24 12:18 Surgeon: Deyvi Kline MD Pre Op Diagnosis: Melena, Perforation intestine, epigastric pain Patient Data Age: 44 Gender: M Height: 1.78 m Weight: 100.4 kg Last Vital Signs Temp 96.9 F L 09/03/24 10:47 Pulse 71 09/03/24 10:47 Resp 20 09/03/24 10:47 BP 140/85 09/03/24 10:47 Pulse Ox 97 09/03/24 10:47 O2 Del Method Room Air 09/03/24 10:47 Allergies Allergy/AdvReac Type Severity Reaction Status Date / Time Penicillins Allergy Severe Hives Verified 09/03/24 10:45 Home Medications Medication Instructions Recorded Confirmed Type lisinopril 20 1 tablet PO DAILY #90 tabs 06/25/24 09/03/24 Rx mg-hydrochlorothiazide 25 mg tablet metoprolol tartrate 25 mg tablet 20 mg PO BID 09/03/24 09/03/24 History multivit with minerals-iron 18 1 tablet PO DAILY 09/03/24 09/03/24 History mg-folic ac 400 mcg-vit K 25 mcg tablet (Adults Multivitamin) Patient hx anesthesia problems: none Family hx anesthesia problems: none Results Review: All pre-operative results and documents have been reviewed as part of the pre-operative evaluation. [facility] Past Medical History Medical History Bowel perforation Depression with anxiety Elevated liver enzymes Epigastric pain ETOH abuse RICH (generalized anxiety disorder) GERD (gastroesophageal reflux disease) Hematochezia Left breast mass RBBB (right bundle branch block) Uncontrolled hypertension Surgical History Surgical History History of colostomy History of colostomy reversal Family History Family History Father Acute myocardial infarction in sleep from heart attack Grandparent Breast cancer Other Colon cancer Other Diabetes mellitus Heart disease Social History Social History Smoking packs per day: 1 Smoking cigarettes per day: 20.0 Years smoked: 5 Smoking pack-years: 5.00 Smoking status: Former smoker Tobacco type: cigarettes Alcohol intake: current Drinks per week: 14 Alcohol use details: DRINKS ON WEEKENDS, MULTIPLE BEER AND VODKA, PRIOR PT DRANK DAILY Substance use: never Substance use type: does not use Lack of Transportation: No Lack of Food: Never True Current Housing: I Have Housing Concerned About Future Housing: No Difficulty Paying Gas/Electric Bills: No Difficulty Paying for Meds: No Currently Unemployed: YES Education: High School Diploma/GED Difficulty w/ Childcare or Family Care: No Living arrangements: with family Spiritual care concerns: No Anes - Eval Final PreProcedure Day of Procedure 09/03/24 12:18 Patient weight: normal Heart: regular rate and rhythm Lungs: clear to auscultation Airway: Mallampati scale class II Neurological: alert and oriented Last oral intake: >/= 8 hours ASA classification: III Emergent: no Anesthetic plan: proceed Anesthesia type and monitoring: general GIVS and standard monitoring Results Review: All pre-operative results and documents have been reviewed as part of the pre-operative evaluation. Informed Consent: The patient's anesthetic plan and its attendant risks and benefits were discussed with the patient/family/POA. Questions were solicited and answers provided to the satisfaction of the patient/family/POA.
--- NOTE | 2024-09-03 12:33 | SUR.OPER ---
EGD start 1224 end 1226, Colonoscopy start 1230
[2024-09-03 12:44] VITALS: BP 92/50; PULSE 80; RESP 22; O2SAT 95
[2024-09-03 12:54] VITALS: BP 108/58; PULSE 72; RESP 20; O2SAT 97
[2024-09-03 13:04] VITALS: BP 111/85; PULSE 67; RESP 22; O2SAT 97
== END 2024-09-03 13:20 | disposition home or self-care (01) ==
PROVIDERS: PCP Family Medicine; Referring Provider Nurse Practitioner Family; Visit Provider Internal Medicine Gastroenterology
PROC: 0DJ08ZZ Inspection of Upper Intestinal Tract, Via Natural or Artificial Opening Endoscopic (ICD-10-PCS; CPT 43235; principal; 2024-09-03 12:30)
DX: D12.5 Benign neoplasm of sigmoid colon (principal); D12.0 Benign neoplasm of cecum; K64.8 Other hemorrhoids; K21.00 Gastro-esophageal reflux disease with esophagitis, without bleeding; I10 Essential (primary) hypertension; Z87.891 Personal history of nicotine dependence; Z87.19 Personal history of other diseases of the digestive system
CPT/HCPCS: 45385; 43239; 88305; J2003; J2704; J7120

== ENCOUNTER 2025-02-17 07:19 | Outpatient (CLI) | payer BC, SELFPAY ==
--- NOTE | ~2025-02-17 | MR_ITS ---
EXAMINATION: MR cervical spine wo con DATE: 02/17/2025 08:33 INDICATION: Cervical radiculopathy TECHNIQUE: Magnetic resonance imaging (MRI) of the cervical spine was performed without intravenous c ontrast. Sequences included sagittal T2-weighted FSE, sagittal T2-weighted FS FSE, sagittal T1-weight ed FSE, axial MERGE and axial T2-weighted FSE. COMPARISON: None FINDINGS: Evaluation mildly limited by motion artifact predominantly on the axial images. Bone alignment is nor mal. Vertebral body heights are normal. Bone marrow signal intensity is normal. Mild disc height lo ss at C5-C6. Cord signal intensity is normal. Cervical soft tissues are unremarkable. The following d isc levels are specifically discussed: C2-C3: The disc does not extend beyond the endplate margin. There is no uncovertebral joint osteoarth ritis. There is no facet joint osteoarthritis. There is no neural foraminal stenosis. There is no lynn tral canal stenosis. C3-C4: Disc is not extend beyond the endplate margin. There is mild bilateral uncovertebral joint ost eoarthritis. There is mild bilateral facet joint osteoarthritis. There is mild bilateral neural enrique inal stenosis. There is no central canal stenosis. C4-C5: Suggestion of annular fissure and small right paracentral disc protrusion. There is mild left and moderate right uncovertebral joint osteoarthritis. There is mild right and moderate left facet ronda int osteoarthritis. There is mild left and mild to moderate right neural foraminal stenosis. There is mild central canal stenosis. C5-C6: Disc is bulging. There is mild left and moderate right uncovertebral joint osteoarthritis. The re is mild right and mild to moderate left facet joint osteoarthritis. There is moderate bilateral ne ural foraminal stenosis. There is mild central canal stenosis. C6-C7: Small right paracentral disc protrusion. There is mild bilateral uncovertebral joint osteoarth ritis. There is mild bilateral facet joint osteoarthritis. There is mild bilateral neural foraminal s tenosis. There is minimal central canal stenosis. C7-T1: The disc does not extend beyond the endplate margin. There is no uncovertebral joint osteoarth ritis. There is mild bilateral facet joint osteoarthritis. There is no neural foraminal stenosis. The re is no central canal stenosis. IMPRESSION: 1. Mild cervical spondylosis. Reviewed, dictated and finalized at location B.
--- OUTSIDE RECORDS SUMMARY | 2025-02-17 07:25 | XMS_ITS | Encounter Summary ---
Author Organization [facility] Address [address] [place] [address] Phone Care Team Providers Care Rn Community Name Role Phone Arcadio Francis MD Primary Care Provider [phone] Reason for Visit * Reason Onset Date Comments Medication Refill 01/31/2025 Encounter Details Date Type Department Care Team (Late st Contact Info) Description 01/31/2025 Refill [facility] - Internal Medicine - [place] [address] [facility] [place] [id number] Arcadio Francis MD [address] [place] [address] Medication Refill Social History Tobacco Use Types Packs/Day Years Used Date Smoking Tobacco: Every Day Cigarettes Passive Smoke Exposure: Current Smokeless Tobacco: Never Alcohol Use Standard Drinks/Week Comments Yes 2 (1 standard drink = 0.6 oz pur e alcohol) [facility] Utilities Answer Date Recorded In the past 12 months has [employer], gas, oil, or water [employer] threatened to shut off services in your home? No 12/16/2024 Social Connection and Isolation Panel [NHANES] A nswer Date Recorded In a typical week, how many times do you talk on the phone with family, friends, or neighbors? Once a week 12/16/2024 How often do you get together with friends or re latives? Once a week 12/16/2024 How often do you attend sabianism or sabianism serv ices? Never 12/16/2024 Do you belong to any clubs o r organizations such as sabianism groups, unions, fraternal or athletic groups, or school groups? No 12/16/2024 How often do you attend meet ings of the clubs or organizations you belong to? Never 12/16/2024 Are you , , di vorced, , never , or living with a partner? 12/16/2024 AUDIT-C Answer Date Recorded Q1: How often do you have a drink containing alc ohol? 2-4 times a month 12/16/2024 Q2: How many drinks containi ng alcohol do you have on a typical day when you are drinking? 5 or 6 12/16/2024 Q3: How often do you have si x or more drinks on one occasion? Never 12/16/2024 Overall Financial Resource Strain (CARDIA) Answe r Date Recorded How hard is it for you to pa y for the very basics like food, housing, medical care, and heating? Somewhat hard 12/16/2024 PHQ-2 Answer Date Recorded Total Score - Questions 1-9 0 11/25 [facility] - Occupational Stress Questionnaire Answer Date Recorded Do you feel stress - tense, restless, nervous, or anxious, or unable to sleep at night because your mind is troubled all the time - these days? To some extent 12/16/2024 Exercise Vital Sign Answer Date Recorde d On average, how many days pe r week do you engage in moderate to strenuous exercise (like a brisk walk)? 5 days 12/16/2024 On average, how many minutes do you engage in exercise at this level? 150+ min 12/16/2024 Hunger Vital Sign Answer Date Recorded Within the past 12 months, y ou worried that your food would run out before you got the money to buy more. Sometimes true Within the past 12 months, t he food you bought just didn't last and you didn't have money to get more. Never true PRAPARE - Transportation Answer Date Re corded In the past 12 months, has l ack of transportation kept you from medical appointments or from getting medications? No 11/25 In the past 12 months, has l ack of transportation kept you from meetings, work, or from getting things needed for daily living? No 12/16/2024 Housing Stability Vital Sign Answer Yogesh e Recorded In the last 12 months, was t here a time when you were not able to pay the mortgage or rent on time? Yes 12/16/2024 In the past 12 months, how m any times have you moved where you were living? 1 12/16/2024 At any time in the past 12 m [facility], were you homeless or living in a fpc (including now)? No 12/16/2024 Sexually Active Control Partners Comments Yes Sex and Gender Information Value Date Recorded Sex Assigned at Not on file Legal Sex Male 2:37 PM CDT Gender Identity Not on file Sexual Orientation Not on file documented as of this encounter Miscellaneous Notes * Telephone Encounter - Gwendolyn Irwin - 01/31/2025 2:02 PM CDT Med rf from Pharmacy Medication - Amlodipine 5 mg tab Quantity of 90 With 3 refills Pharmacy - [facility] [phone] documented in this encounter Plan of Treatment Not on file documented as of this encounter Visit Diagnoses Not on filedocumented in this encounter Additional Health Concerns Assessment Noted Time PHQ-9 Depression Total Score: 0 12/16/19 9:42 AM 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
--- OUTSIDE RECORDS SUMMARY | 2025-02-17 07:25 | XMS_ITS | Clinical Summary ---
Author Organization [facility] Address [address] [address] Phone Care Team Providers Care Switchboard Operator Name Role Phone Arcadio Francis MD Primary Care Provider [phone] Allergies Active Allergy Reactions Criticality Noted Date Comments Lisinopril Other (see Comments) 12/16/2024 Cough Penicillins Hives 12/16/2024 Valsartan-Hydrochlorothiazid e Other (see Comments) 12/30/2024 Heart burn Medications metoprolol tartrate (LOPRESSOR) 25 MG Tablet Take 1 Tablet by mouth 2 times daily. 180 Tablet 1 5 Active buPROPion (WELLBUTRIN) 150 MG XL tablet Take 1 Tablet by mouth daily. 30 Tablet 3 5 Active cyclobenzaprine (FLEXERIL) 10 MG Tablet Take 0.5 Tablets by mouth 3 times daily as needed for Muscle spasms. 15 Tablet 5 Active amLODIPine (NORVASC) 5 MG Tablet Take 1 Tablet by mouth daily. 30 Tablet 5 Active amLODIPine (NORVASC) 5 MG Tablet Take 1 Tablet by mouth daily. 30 Tablet 5 01/28/20 25 Discontinu ed(Reorder ) Active Problems Problem Noted Date Diagnosed Date Family history of premature CAD 12/16/2024 Overview (12/16/2024): Father at 59 due to [place] Generalized anxiety disorder 12/16/2024 Essential hypertension, benign 12/16/2024 Encounters Date Type Department Care Team Description 01/31/2025 Refill [facility] [address] [place] [phone] Arcadio Francis MD Medication Refill 01/27/2025 [facility] [address] [place] [address] Arcadio Francis MD Medication Refill 01/10/2025 7:27 AM TRADING ANALYST - 01/10/2025 9:19 AM TRADING ANALYST Emergency [facility] [address] [place] [phone] Treasure Payton MD Cervical radiculopathy Discharge Disposition: Discharged to home or Selfcare 01/10/2025 Travel 01/05/[facility] [address] [place] [address] Arcadio Francis MD Medication Management 12/30/2024 [facility] [address] [place] [address] Arcadio Francis MD 12/27/2024 [facility] [address] [place] [phone] Arcadio Francis MD 12/16/2024 9:45 AM TRADING ANALYST Office Visit [facility] [address] [place] [phone] Arcadio Francis MD Health maintenance examination (Adult) (Primary Dx); Family history of premature CAD; Snoring; Essential hypertension, benign; B12 deficiency; Vitamin D deficiency; Observed sleep apnea; Generalized anxiety disorder Discharge Disposition: Discharged to home or Selfcare 12/16/2024 Travel from Last 3 Months Family History Medical History Relation Name Comments Heart Attack Father Cancer Sister 1 Relation Name Status Comments Father Mother Alive Sister 1 Alive Sister 2 Alive Social History Tobacco Use Types Packs/Day Years Used Date Smoking Tobacco: Every Day Cigarettes Passive Smoke Exposure: Current Smokeless Tobacco: Never Tobacco Cessation:Ready to Q uit: No; Counseling Given: No Alcohol Use Standard Drinks/Week Comments Yes 2 (1 standard drink = 0.6 oz pur e alcohol) [place] Utilities Answer Date Recorded In the past 12 months has e electric, gas, oil, or water company threatened to shut off services in your home? No 12/16/2024 Social Connection and Isolation Panel [NHANES] A nswer Date Recorded In a typical week, how many times do you talk on the phone with family, friends, or neighbors? Once a week 12/16/2024 How often do you get together with friends or re latives? Once a week 12/16/2024 How often do you attend mandaen or methodist serv ices? Never 12/16/2024 Do you belong to any clubs o r organizations such as mandaen groups, unions, fraternal or athletic groups, or [...] Total Score - Questions 1-9 0 11/25 [facility] [place] of Occupat ional Health - Occupational Stress [...] any time in the past 12 m [facility], were you homeless or living in a snf (including now)? No 12/16/2024 Sexually Active Control Partners Comments Yes Sex and Gender Information Value Date Recorded Sex Assigned at Not on file Legal Sex Male 2:37 PM CDT Gender Identity Not on file Sexual Orientation Not on file Last Filed Vital Signs Vital Sign Reading Time Taken Comments Blood Pressure 147/101 01/10/2025 9:15 AM TRADING ANALYST Pulse 61 01/10/2025 9:15 AM TRADING ANALYST Temperature 35.9 C (96.6 F) 01/10/2025 7:33 AM TRADING ANALYST Respiratory Rate 16 01/10/2025 9:15 AM TRADING ANALYST Oxygen Saturation 96% 01/10/2025 9:15 AM TRADING ANALYST Inhaled Oxygen Concentration - - Weight 105.2 kg (232 lb) 01/10/2025 7:33 AM TRADING ANALYST Height 177.8 cm (5' 10 ) 01/10/2025 7:33 AM TRADING ANALYST Body Mass Index 33.29 01/10/2025 7:33 AM TRADING ANALYST Plan of Treatment Health Maintenance Due Date Last Done Comments Hepatitis C Virus (HCV) Screening 1981 TdaP Immunization 1981 Hepatitis B Immunization (1 of 3 - 19+ 3-dose series) 2000 Pneumococcal Immunization Combined (1 of 2 - PCV) 2000 Influenza Immunization (#1) 2024 SARS-COV-2 Immunization ( season) 2024 06/14/2021, 05/21/2021, 02/16/2021, Additional history exists Respiratory Syncytial Virus (RSV) Immunization (Adult) (1 - 1-dose 75+ series) 2056 Meningococcal Immunization (ACWY) Aged Out No longer eligible based on patient's age to complete this topic Rotavirus Immunization Aged Out No lo nger eligible based on patient's age to complete this topic Procedures Procedure Name Priority Date/Time Associated Diagnosis Comments XR SHOULDER COMPLETE LEFT STAT 01/10/2025 8:25 AM TRADING ANALYST XR CERVICAL SPINE LIMITED 2 OR 3 VIEWS (3V OR LESS) STAT 01/10/2025 8:25 AM TRADING ANALYST XR CHEST 2 VIEWS STAT 01/10/2025 8:25 AM TRADING ANALYST CMP (COMPREHENSIVE METABOLIC PANEL) Routine 12/24/2024 Essential hypertension, benign Health maintenance examination (Adult) LIPID PANEL Routine 12/24/2024 Essential hypertension, benign Health maintenance examination (Adult) HEMOGLOBIN A1C W/ ESTIMATED GLUCOSE Routine 12/24/2024 Essential hypertension, benign Health maintenance examination (Adult) VITAMIN B12 Routine 12/24/2024 B12 deficiency VITAMIN D, 25 HYDROXY TOTAL Routine 12/24/2024 Vitamin D deficiency from Last 3 Months Results * XR SHOULDER COMPLETE LEFT (01/10/2025 8:25 AM TRADING ANALYST) Anatomical Region Laterality Modality UPPER EXTREMITY, shoulder Left Digita l Radiography 01/10/2025 8:38 AM TRADING ANALYST Impressions 01/10/2025 8:41 AM TRADING ANALYST IMPRESSION: No acute radiographic abnormality. Narrative 01/10/2025 8:41 AM TRADING ANALYST EXAM DESCRIPTION: XR SHOULDER COMPLETE LEFT REASON FOR STUDY: Left shoulder pain for 1 year, worse in the last 1 week. No reported injury. TECHNIQUE: Four views of the left shoulder COMPARISON: None FINDINGS: BONES/JOINTS: No acute fracture or dislocation. The joint spaces are normal. SOFT TISSUES: Within normal limits. THIS IS AN ELECTRONICALLY VERIFIED FINAL REPORT 01/10/2025 8:38 AM - Electronically signed by Servando Carter M.D. LB: LB Report ID: [id number] Reading Location: [id number] Procedure Note Servando Carter MD - 01/10/2025 EXAM DESCRIPTION: XR SHOULDER COMPLETE LEFT REASON FOR STUDY: Left shoulder pain for 1 year, worse in the last 1 week. No reported injury. TECHNIQUE: Four views of the left shoulder COMPARISON: None FINDINGS: BONES/JOINTS: No acute fracture or dislocation. The joint spaces are normal. SOFT TISSUES: Within normal limits. THIS IS AN ELECTRONICALLY VERIFIED FINAL REPORT 01/10/2025 8:38 AM - Electronically signed by Servando Carter M.D. LB: LB Report ID: [id number] Reading Location: [id number] IMPRESSION: No acute radiographic abnormality. Treasure Payton MD IMG DIAGNOSTIC ORDERABLES Fin al Result * XR CERVICAL SPINE LIMITED 2 OR 3 VIEWS (3V OR LESS) (01/10/2025 8:25 AM TRADING ANALYST) Anatomical Region Laterality Modality Spine, C-spine N/A Digital Radiogra phy 01/10/2025 8:43 AM TRADING ANALYST Impressions 01/10/2025 8:45 AM TRADING ANALYST IMPRESSION: No acute radiographic abnormality of the cervical spine. Moderate cervical spondylosis at C5-6. Narrative 01/10/2025 8:45 AM TRADING ANALYST EXAM DESCRIPTION: XR CERVICAL SPINE LIMITED 2 OR 3 VIEWS (3V OR LESS) REASON FOR STUDY: Left-sided neck pain for 1 year. No reported injury.. TECHNIQUE: AP, lateral, open-mouth radiographic view(s) of the cervical spine COMPARISON: None FINDINGS: ALIGNMENT: Normal. VERTEBRAE: No acute fracture. Moderate cervical spondylosis at C5-6. DISCS: Disc height well-maintained. SOFT TISSUES: No prevertebral soft tissue swelling. The partially included lung apices are clear. THIS IS AN ELECTRONICALLY VERIFIED FINAL REPORT 01/10/2025 8:43 AM - Electronically signed by Servando Carter M.D. LB: LB Report ID: [id number] Reading Location: [id number] Procedure Note Servando Carter MD - 01/10/2025 EXAM DESCRIPTION: XR CERVICAL SPINE LIMITED 2 OR 3 VIEWS (3V OR LESS) REASON FOR STUDY: Left-sided neck pain for 1 year. No reported injury.. TECHNIQUE: AP, lateral, open-mouth radiographic view(s) of the cervical spine COMPARISON: None FINDINGS: ALIGNMENT: Normal. VERTEBRAE: No acute fracture. Moderate cervical spondylosis at C5-6. DISCS: Disc height well-maintained. SOFT TISSUES: No prevertebral soft tissue swelling. The partially included lung apices are clear. THIS IS AN ELECTRONICALLY VERIFIED FINAL REPORT 01/10/2025 8:43 AM - Electronically signed by Servando Carter M.D. LB: LB Report ID: [id number] Reading Location: [id number] IMPRESSION: No acute radiographic abnormality of the cervical spine. Moderate cervical spondylosis at C5-6. Treasure Payton MD IMG DIAGNOSTIC ORDERABLES Fin al Result * XR CHEST 2 VIEWS (01/10/2025 8:25 AM TRADING ANALYST) Anatomical Region Laterality Modality Chest N/A Digital Radiogra phy 01/10/2025 8:41 AM TRADING ANALYST Impressions 01/10/2025 8:44 AM TRADING ANALYST IMPRESSION: No acute radiographic abnormality. Narrative 01/10/2025 8:44 AM TRADING ANALYST EXAM DESCRIPTION: XR CHEST 2 VIEWS REASON FOR STUDY: Chronic cough, worse in the last 4 months. TECHNIQUE: PA and lateral radiographic views of the chest COMPARISON: None FINDINGS: LUNGS/PLEURAE: No consolidation or pneumothorax. No pleural effusion. HEART/MEDIASTINUM: Heart size is normal. Normal mediastinal and hilar contours. HARDWARE/LINES/TUBES: None. BONES: Mild thoracic spondylosis. THIS IS AN ELECTRONICALLY VERIFIED FINAL REPORT 01/10/2025 8:41 AM - Electronically signed by Servando Carter M.D. LB: LB Report ID: [id number] Reading Location: [id number] Procedure Note Servando Carter MD - 01/10/2025 EXAM DESCRIPTION: XR CHEST 2 VIEWS REASON FOR STUDY: Chronic cough, worse in the last 4 months. TECHNIQUE: PA and lateral radiographic views of the chest COMPARISON: None FINDINGS: LUNGS/PLEURAE: No consolidation or pneumothorax. No pleural effusion. HEART/MEDIASTINUM: Heart size is normal. Normal mediastinal and hilar contours. HARDWARE/LINES/TUBES: None. BONES: Mild thoracic spondylosis. THIS IS AN ELECTRONICALLY VERIFIED FINAL REPORT 01/10/2025 8:41 AM - Electronically signed by Servando Carter M.D. LB: LB Report ID: [id number] Reading Location: [id number] IMPRESSION: No acute radiographic abnormality. us Treasure Payton MD IMG DIAGNOSTIC ORDERABLES Fin al Result * VITAMIN D, 25 HYDROXY TOTAL (12/24/2024) Blood 12/24/2024 us Arcadio Francis MD CHEMISTRY ORDERABLES Final Result * HEMOGLOBIN A1C W/ ESTIMATED GLUCOSE (12/24/2024) Blood 12/24/2024 Result [facility] Arcadio Francis MD CHEMISTRY ORDERABLES Final Result * VITAMIN B12 (12/24/2024) Blood 12/24/2024 Result [facility] Arcadio Francis MD CHEMISTRY ORDERABLES Final Result * LIPID PANEL (12/24/2024) Blood 12/24/2024 Result [facility] Arcadio Francis MD CHEMISTRY ORDERABLES Final Result * CMP (COMPREHENSIVE METABOLIC PANEL) (12/24/2024) Blood 12/24/2024 Result [facility] Arcadio Francis MD CHEMISTRY ORDERABLES Final Result from Last 3 Months Insurance [facility] Care Teams Switchboard Operator Relationship Specialty Start Date End Date Arcadio Francis MD [address] [place] [address] PCP - General Internal Medicine 12/16/24
== END 2025-02-17 07:20 | disposition home or self-care (01) ==
LOC: CHSIMG 07:20
PROVIDERS: PCP Family Medicine; Visit Provider Family Medicine
DX: G47.33 Obstructive sleep apnea (adult) (pediatric) (principal); M54.12 Radiculopathy, cervical region; M43.02 Spondylolysis, cervical region
CPT/HCPCS: 72141

== ENCOUNTER 2025-03-04 09:50 | Outpatient (CLI) | payer BC, SELFPAY ==
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
--- OUTSIDE RECORDS SUMMARY | 2025-03-04 10:21 | XMS_ITS | Clinical Summary ---
Author Organization [facility] Address [address] [address] Phone Care Team Providers Care Web Mobile Designer Name Role Phone Arcadio Francis MD Primary Care Provider Allergies Active Allergy Reactions Criticality Noted Date Comments Lisinopril Other (see Comments) 12/16/2024 Cough Penicillins Hives 12/16/2024 Valsartan-Hydrochlorothiazid e Other (see Comments) 12/30/2024 Heart burn Medications metoprolol tartrate (LOPRESSOR) 25 MG Tablet Take 1 Tablet by mouth 2 times daily. 180 Tablet 1 12/16/2024 Active buPROPion (WELLBUTRIN) 150 MG XL tablet Take 1 Tablet by mouth daily. 30 Tablet 3 12/16/2024 Active cyclobenzaprine (FLEXERIL) 10 MG Tablet Take 0.5 Tablets by mouth 3 times daily as needed for Muscle spasms. 15 Tablet 01/10/2025 Active amLODIPine (NORVASC) 5 MG Tablet Take 1 Tablet by mouth daily. 30 Tablet 01/27/2025 Active Active Problems Problem Noted Date Diagnosed Date Family history of premature CAD 12/16/2024 Overview (12/16/2024): Father at 59 due to [place] Generalized anxiety disorder 12/16/2024 Essential hypertension, benign 12/16/2024 Encounters Date Type Department Care Team Description 01/31/2025 Refill [facility] [place] [address] [place] [address] Arcadio Francis MD Medication Refill 01/27/2025 [facility] [place] [place] [address] [place] [address] Arcadio Francis MD Medication Refill 01/10/2025 7:27 AM CLINICAL EDUCATION MANAGER - 01/10/2025 9:19 AM CLINICAL EDUCATION MANAGER [facility] [address] [place] [address] Treasure Payton MD Cervical radiculopathy Discharge Disposition: Discharged to home or Selfcare 01/10/2025 Travel 01/05/2025 Telephone [facility] [address] [place] [address] Arcadio Francis MD Medication Management 12/30/2024 [facility]phone [facility] [address] [place] [address] Arcadio Francis MD 12/27/2024 Results Follow-Up [facility] [address] [place] [address] Arcadio Francis MD 12/16/2024 9:45 AM CLINICAL EDUCATION MANAGER Office Visit [facility] [address] [place] [address] Arcadio Francis MD Health maintenance examination (Adult) [...] drink = 0.6 oz pur e alcohol) [facility] Utilities Answer Date Recorded In the past 12 months has th e electric, gas, oil, or water company [...] week 12/16/2024 How often do you attend congregation or spiritism serv ices? Never 12/16/2024 Do you belong to any clubs o r organizations such as congregation groups, unions, fraternal or athletic groups, or [...] Total Score - Questions 1-9 0 11/25 [facility] [place] of Occupat ional Health - Occupational Stress [...] any time in the past 12 m [facility], were you homeless or living in a jail (including now)? No 12/16/2024 Sexually Active Control Partners Comments Yes Sex and Gender Information Value Date Recorded Sex Assigned at Not on file Legal Sex Male 2:37 PM CDT Gender Identity Not on file Sexual Orientation Not on file Last Filed Vital Signs Vital Sign Reading Time Taken Comments Blood Pressure 147/101 01/10/2025 9:15 AM CLINICAL EDUCATION MANAGER Pulse 61 01/10/2025 9:15 AM CLINICAL EDUCATION MANAGER Temperature 35.9 C (96.6 F) 01/10/2025 7:33 AM CLINICAL EDUCATION MANAGER Respiratory Rate 16 01/10/2025 9:15 AM CLINICAL EDUCATION MANAGER Oxygen Saturation 96% 01/10/2025 9:15 AM CLINICAL EDUCATION MANAGER Inhaled Oxygen Concentration - - Weight 105.2 kg (232 lb) 01/10/2025 7:33 AM CLINICAL EDUCATION MANAGER Height 177.8 cm (5' 10 ) 01/10/2025 7:33 AM CLINICAL EDUCATION MANAGER Body Mass Index 33.29 01/10/2025 7:33 AM CLINICAL EDUCATION MANAGER Plan of Treatment Health Maintenance Due Date Last Done Comments Hepatitis C Virus (HCV) Screening 1981 TdaP Immunization 1981 Hepatitis B Immunization (1 of 3 - 19+ 3-dose series) 2000 Pneumococcal Immunization Combined (1 of 2 - PCV) 2000 Influenza Immunization (#1) 2024 SARS-COV-2 Immunization (5 - season) 2024 06/14/2021, 05/21/2021, 02/16/2021, Additional history [...] SHOULDER COMPLETE LEFT STAT 01/10/2025 8:25 AM CLINICAL EDUCATION MANAGER XR CERVICAL SPINE LIMITED 2 OR 3 VIEWS (3V OR LESS) STAT 01/10/2025 8:25 AM CLINICAL EDUCATION MANAGER XR CHEST 2 VIEWS STAT 01/10/2025 8:25 AM CLINICAL EDUCATION MANAGER CMP (COMPREHENSIVE METABOLIC PANEL) Routine 12/24/2024 Essential [...] XR SHOULDER COMPLETE LEFT (01/10/2025 8:25 AM CLINICAL EDUCATION MANAGER) Anatomical Region Laterality Modality UPPER EXTREMITY, shoulder Left Digita l Radiography 01/10/2025 8:38 AM CLINICAL EDUCATION MANAGER Impressions 01/10/2025 8:41 AM CLINICAL EDUCATION MANAGER IMPRESSION: No acute radiographic abnormality. Narrative 01/10/2025 8:41 AM CLINICAL EDUCATION MANAGER EXAM DESCRIPTION: XR SHOULDER COMPLETE LEFT REASON [...] Servando Carter M.D. LB: LB Report ID: [id number] Reading Location: [id number] Procedure Note Servando Carter MD - 01/10/2025 [...] Servando Carter M.D. LB: LB Report ID: [id number] Reading Location: [id number] IMPRESSION: No acute radiographic abnormality. Treasure Dean Payton MD IM DIAGNOSTIC ORDERABLES [facility] al Result * XR CERVICAL SPINE LIMITED 2 OR 3 VIEWS (3V OR LESS) (01/10/2025 8:25 AM CLINICAL EDUCATION MANAGER) Anatomical Region Laterality Modality Spine, C-spine N/A Digital Radiogra phy 01/10/2025 8:43 AM CLINICAL EDUCATION MANAGER Impressions 01/10/2025 8:45 AM CLINICAL EDUCATION MANAGER IMPRESSION: No acute radiographic abnormality of the cervical spine. Moderate cervical spondylosis at C5-6. Narrative 01/10/2025 8:45 AM CLINICAL EDUCATION MANAGER EXAM DESCRIPTION: XR CERVICAL SPINE LIMITED 2 [...] Servando Carter M.D. LB: LB Report ID: [id number] Reading Location: [id number] Procedure Note Servando Carter MD - 01/10/2025 [...] Servando Carter M.D. LB: LB Report ID: [id number] Reading Location: [id number] IMPRESSION: No acute radiographic abnormality of the cervical spine. Moderate cervical spondylosis at C5-6. Treasure Payton MD [facility] [place] DIAGNOSTIC ORDERABLES Fin al Result * XR CHEST 2 VIEWS (01/10/2025 8:25 AM CLINICAL EDUCATION MANAGER) Anatomical Region Laterality Modality Chest N/A Digital Radiogra phy 01/10/2025 8:41 AM CLINICAL EDUCATION MANAGER Impressions 01/10/2025 8:44 AM CLINICAL EDUCATION MANAGER IMPRESSION: No acute radiographic abnormality. Narrative 01/10/2025 8:44 AM CLINICAL EDUCATION MANAGER EXAM DESCRIPTION: XR CHEST 2 VIEWS REASON [...] Servando Carter M.D. LB: LB Report ID: [id number] Reading Location: [id number] Procedure Note Servando Carter MD - 01/10/2025 [...] Servando Carter M.D. LB: LB Report ID: [id number] Reading Location: [id number] IMPRESSION: No acute radiographic abnormality. Treasure Payton MD IMG DIAGNOSTIC ORDERABLES Fin al Result * VITAMIN D, 25 HYDROXY TOTAL (12/24/2024) Blood 12/24/2024 Arcadio Francis MD CHEMISTRY ORDERABLES Final Result * HEMOGLOBIN A1C W/ ESTIMATED GLUCOSE (12/24/2024) Blood 12/24/2024 Arcadio Francis MD CHEMISTRY ORDERABLES Final Result * VITAMIN B12 (12/24/2024) Blood 12/24/2024 Arcadio Francis MD CHEMISTRY ORDERABLES Final Result * LIPID PANEL (12/24/2024) Blood 12/24/2024 Arcadio Francis MD CHEMISTRY ORDERABLES Final Result * CMP (COMPREHENSIVE METABOLIC PANEL) (12/24/2024) Blood 12/24/2024 Result [facility] Arcadio Francis MD CHEMISTRY ORDERABLES Final Result from Last 3 Months Insurance [facility] Care Teams Web Mobile Designer Relationship Specialty Start Date End Date Arcadio Francis MD [address] [place] [address] PCP - General Internal Medicine 12/16/24
--- OUTSIDE RECORDS SUMMARY | 2025-03-04 10:21 | XMS_ITS | Encounter Summary ---
Author Organization [facility] Address [address] [place] [address] Phone Care Team Providers Care Command And Control Specialist Name Role Phone Arcadio Francis MD Primary Care Provider [phone] Reason for Visit * Reason Onset Date Comments Medication Refill 01/31/2025 Encounter Details Date Type Department Care Team (Late st Contact Info) Description 01/31/[address] [facility] - Internal Medicine - [place] [address] [id number] Arcadio Francis MD [address] [place] [address] Medication Refill Social History Tobacco Use Types Packs/Day Years Used Date Smoking Tobacco: Every Day Cigarettes Passive Smoke Exposure: Current Smokeless Tobacco: Never Alcohol Use Standard Drinks/Week Comments Yes 2 (1 standard drink = 0.6 oz pur e alcohol) [facility] Utilities Answer Date Recorded In the past 12 months has [employer], gas, oil, or water [email or web address] threatened to shut off services in your home? No 12/16/2024 Social Connection and Isolation Panel [NHANES] A nswer Date Recorded In a typical week, how many times do you talk on the phone with family, friends, or neighbors? Once a week 12/16/2024 How often do you get together with friends or re latives? Once a week 12/16/2024 How often do you attend nondenominational or amish serv ices? Never 12/16/2024 Do you belong to any clubs o r organizations such as nondenominational groups, unions, fraternal or athletic groups, or [...] Total Score - Questions 1-9 0 11/25 [facility] of Occupat ional Health - Occupational [...] any time in the past 12 m [facility], were you homeless or living in a residential (including now)? No 12/16/2024 Sexually Active Control [...] of 90 With 3 refills Pharmacy - [facility] [phone] documented in this encounter Plan of Treatment Not on file documented as of this encounter Visit Diagnoses Not on filedocumented in this encounter Additional Health Concerns Assessment Noted Time PHQ-9 Depression Total Score: 0 12/16/19 9:42 AM COMMUNITY CENTER COORDINATOR documented as of this encounter Care Teams Command And Control Specialist Relationship Specialty Start Date End Date Arcadio Francis MD [address] [place] [address] PCP - General Internal Medicine 12/16/24 documented as of this encounter
== END 2025-03-04 09:51 | disposition home or self-care (01) ==
PROVIDERS: PCP Family Medicine; Visit Provider Family Medicine
DX: R51.9 Headache, unspecified (principal); M54.2 Cervicalgia
CPT/HCPCS: 70450; 72072; 72125

== ENCOUNTER 2025-03-29 11:13 | Outpatient (CLI) | payer BC, SELFPAY ==
--- NOTE | ~2025-03-29 | XR_ITS ---
Left Knee Technique: AP, lateral, and sunrise views were obtained. Clinical History: Pain Findings: No fracture or dislocation is seen. Osseous alignment is anatomic. Joint spaces are preserv ed with minimal patellar spurring. Soft tissues are unremarkable. No joint effusion is seen. Impression: Minimal patellar spurring. Reviewed, dictated and finalized at location . Impression: Minimal patellar spurring.
--- OUTSIDE RECORDS SUMMARY | 2025-03-29 12:07 | XMS_ITS | Encounter Summary ---
Author Organization [facility] Address [address] [place] [address] Phone Care Team Providers Care Lot Associate Name Role Phone Arcadio Francis MD Primary Care Provider [phone] Reason for Visit * Reason Onset Date Comments Medication Refill 01/31/2025 Encounter Details Date Type Department Care Team (Late st Contact Info) Description 01/31/2025 Refill [facility] - Internal Medicine - [place] [address] [place] [id number] Arcadio Francis MD [address] [place] [address] Medication Refill Social History Tobacco Use Types Packs/Day Years Used Date Smoking Tobacco: Every Day Cigarettes Passive Smoke Exposure: Current Smokeless Tobacco: Never Alcohol Use Standard Drinks/Week Comments Yes 2 (1 standard drink = 0.6 oz pur e alcohol) [facility] Utilities Answer Date Recorded In the past 12 months has [employer], gas, oil, or water [employer] threatened to shut off services in your home? No 12/16/2024 Social Connection and Isolation Panel [NHANES] A nswer Date Recorded In a typical week, how many times do you talk on the phone with family, friends, or neighbors? Once a week 12/16/2024 How often do you get together with friends or re latives? Once a week 12/16/2024 How often do you attend gnosticism or mormonism serv ices? Never 12/16/2024 Do you belong to any clubs o r organizations such as gnosticism groups, unions, fraternal or athletic groups, or [...] Total Score - Questions 1-9 0 11/25 [facility] of Occupat ional Health - Occupational [...] any time in the past 12 m [facility], were you homeless or living in a senior living (including now)? No 12/16/2024 Sexually Active Control [...] of 90 With 3 refills Pharmacy - [facility] [phone] documented in this encounter Plan of Treatment Not on file documented as of this encounter Visit Diagnoses Not on filedocumented in this encounter Additional Health Concerns Assessment Noted Time PHQ-9 Depression Total Score: 0 12/16/19 9:42 AM IDEA MAN documented as of this encounter Care Teams Lot Associate Relationship Specialty Start Date End Date Arcadio Francis MD [address] [place] [address] PCP - General Internal Medicine 12/16/24 documented as of this encounter
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
== END 2025-03-29 11:14 | disposition home or self-care (01) ==
LOC: CHSIMG 11:19
PROVIDERS: PCP Family Medicine; Visit Provider Family Medicine
DX: M25.562 Pain in left knee (principal)
CPT/HCPCS: 73562

== ENCOUNTER 2025-04-30 08:55 | Outpatient (CLI) | payer BC, SELFPAY ==
--- NOTE | ~2025-04-30 | MR_ITS ---
EXAMINATION: MR knee LT wo con DATE: 04/30/2025 09:44 INDICATION: S83.207A - Unspecified tear of unspecified meniscus, curr... TECHNIQUE: Magnetic resonance imaging (MRI) of the left knee was performed without intravenous contra st. Sequences included axial PD-weighted FS FSE, coronal PD-weighted FSE and PD-weighted FS FSE, sagi ttal PD-weighted FSE, and sagittal T2-weighted FS FSE. COMPARISON: X-ray left knee 03/29/2025 FINDINGS: Medial compartment: Medial joint space narrowing. Mild osteophytosis. Near full-thickness cartilage loss on the MFC. 10 m m area of full-thickness cartilage loss on the medial tibial plateau. Medial meniscal tear with displ acement of a large meniscal flap into the posterior aspect of the intercondylar notch. Volume loss, a nd abnormal signal/fraying of the residual portions of the medial meniscus Lateral compartment: Meniscus and cartilage intact. Patellofemoral compartment: Cartilaginous irregularity and some undermining of cartilage along the medial facet. Retinacula intac t. Ligaments and tendons: The ACL, PCL, MCL, and LCL are intact. Remaining flexor and extensor tendons are intact. Fluid: Moderate volume joint fluid. Small Martinez's cyst. Osseous/other: Mild focal marrow edema along the posteromedial aspect of the medial tibial plateau and medially xiao g the medial tibial plateau IMPRESSION: Tear of the medial meniscus, with displacement of a large meniscal flap into the posterior aspect of the intercondylar notch. Moderate degenerative changes in the medial compartment. Chondromalacia patellae. Moderate volume joint effusion. Reviewed, dictated and finalized at location K. IMPRESSION: Tear of the medial meniscus, with displacement of a large meniscal flap into th e posterior aspect of the intercondylar notch. Moderate degenerative changes in the medial compartment. Chondromalacia patellae. Moderate volume joint effusion.
--- OUTSIDE RECORDS SUMMARY | 2025-04-30 08:56 | XMS_ITS | Clinical Summary ---
Author Organization [facility] Address [address] [address] Phone Care Team Providers Care Lead Welder Name Role Phone Arcadio Francis MD Primary [...] Overview (12/16/2024): Father at 59 due to MD Generalized anxiety disorder 12/16/2024 Essential hypertension, benign 12/16/2024 Encounters Date Type Department Care Team Description 01/31/2025 Refill [facility] - Internal Medicine - [place] [address] [place] [address] Arcadio Francis MD Medication Refill from Last 3 Months Family History Medical [...] drink = 0.6 oz pur e alcohol) [facility] Utilities Answer Date Recorded In the past 12 months has [employer], gas, oil, or water company threatened to shut off services in your home? No 12/16/2024 Social Connection and Isolation Panel Answer Date Recorded In a typical week, how many times do you talk on the phone with family, friends, or neighbors? Once a week 12/16/2024 How often do you get together with friends or re latives? Once a week 12/16/2024 How often do you attend lutheran or buddhism serv ices? Never 12/16/2024 Do you belong to any clubs o r organizations such as lutheran groups, unions, fraternal or athletic groups, or [...] Total Score - Questions 1-9 0 11/25 [facility] of Occupat ional Health - Occupational Stress [...] were you homeless or living in a prison (including now)? No 12/16/2024 Sexually Active Control Partners Comments Yes Sex and Gender Information Value Date Recorded Sex Assigned at Not on file Legal Sex Male 2:37 PM CDT Gender Identity Not on file Sexual Orientation Not on file Last Filed Vital Signs Vital Sign Reading Time Taken Comments Blood Pressure 147/101 01/10/2025 9:15 AM TAILOR APPRENTICE Pulse 61 01/10/2025 9:15 AM TAILOR APPRENTICE Temperature 35.9 C (96.6 F) 01/10/2025 7:33 AM TAILOR APPRENTICE Respiratory Rate 16 01/10/2025 9:15 AM TAILOR APPRENTICE Oxygen Saturation 96% 01/10/2025 9:15 AM TAILOR APPRENTICE Inhaled Oxygen Concentration - - Weight 105.2 kg (232 lb) 01/10/2025 7:33 AM TAILOR APPRENTICE Height 177.8 cm (5' 10) 01/10/2025 7:33 AM TAILOR APPRENTICE Body Mass Index 33.29 01/10/2025 7:33 AM TAILOR APPRENTICE Plan of Treatment Health Maintenance Due Date Last Done Comments Hepatitis C Virus (HCV) Screening 1981 TdaP Immunization 1981 Hepatitis B Immunization (1 of 3 - 19+ 3-dose series) 2000 Pneumococcal Immunization Combined (1 of 2 - PCV) 2000 SARS-COV-2 Immunization ( season) 2024 06/14/2021, 05/21/2021, 02/16/2021, Additional history exists Influenza Immunization (Season Ended) 2025 Respiratory Syncytial Virus (RSV) Immunization (Adult) (1 - 1-dose 75+ series) 2056 Human Papillomavirus (HPV) Immunization Aged Out No longer eligible based on patient's age to complete this topic Meningococcal Immunization (ACWY) Aged Out No longer eligible based on patient's age to complete this topic Rotavirus Immunization Aged Out No lo nger eligible based on patient's age to complete this topic Insurance [facility] Care Teams Lead Welder Relationship Specialty Start Date End Date Arcadio Francis MD [address] [place] [address] PCP - General Internal Medicine 12/16/24
== END 2025-04-30 08:56 | disposition home or self-care (01) ==
LOC: CHSIMG 08:55
PROVIDERS: PCP Family Medicine; Visit Provider Family Medicine
DX: S83.207A Unspecified tear of unspecified meniscus, current injury, left knee, initial encounter (principal); S83.242A Other tear of medial meniscus, current injury, left knee, initial encounter; M22.42 Chondromalacia patellae, left knee; M25.462 Effusion, left knee
CPT/HCPCS: 73721

== ENCOUNTER 2025-05-10 09:26 | Emergency (ER) | payer BC, SELFPAY ==
[2025-05-10] VITALS (9 sets, daily range): BP systolic 120–141; BP diastolic 72–96; PULSE 76–93; RESP 14–18; TEMP 36.3–37.1; O2SAT 94–99
--- NOTE | ~2025-05-10 | XR_ITS ---
EXAMINATION: XR chest 2V DATE: 05/10/2025 09:59 INDICATION: Cough and wheezing TECHNIQUE: frontal and lateral views of the chest were obtained. COMPARISON: Chest radiograph dated 01/16/2022 FINDINGS: The lungs are clear with no focal airspace opacities, pulmonary edema, pleural effusion or pneumothor ax. The cardiomediastinal silhouette is normal. Mild thoracic spondylosis. IMPRESSION: 1. No acute cardiopulmonary disease. Reviewed, dictated and finalized at location A.
--- NOTE | 2025-05-10 09:47 | ED_ITS ---
HPI - General Adult General Chief complaint: Upper Respiratory Infection Stated complaint: cough Time Seen by Provider: 05/10/25 09:33 Source: patient Mode of arrival: ambulatory Limitations: no limitations History of Present Illness HPI narrative: 44-year-old white male came in with her fiance complaining of cough for the last week treated with some Tessalon Perles. He says he has some wheezing. No history of lung disease or heart disease. He says now he has a persistent cough with yellow sputum and and he is breathing harder than usual denies any chest pain or back pain nausea he did have some vomiting a couple times when he is coughing. Denies any fever rash or itching swelling lumps or bumps. In about 2 minutes worth of left wrist pain when he was driving it is gone now he has no loss of function of his left upper extremity. Denies any dizziness or any other complaints. Related Data Home Medications ?Medication ?Instructions ?Recorded ?Confirmed ?Last Taken ?Type metoprolol tartrate 25 mg tablet 20 mg PO BID 09/03/24 05/09/25 09/03/24 History multivit with minerals-iron 18 1 tablet PO DAILY 09/03/24 05/09/25 09/03/24 History mg-folic ac 400 mcg-vit K 25 mcg tablet (Adults Multivitamin) Allergies Allergy/AdvReac Type Severity Reaction Status Date / Time Penicillins Allergy Severe Anaphylaxis Verified 05/10/25 09:31 Review of Systems 2 Review of Systems: All systems reviewed & are unremarkable except as noted in HPI and below PMFSH Past Medical History Medical History Functional burping disorder Elevated liver enzymes Epigastric pain RBBB (right bundle branch block) Left breast mass Bowel perforation Depression with anxiety ETOH abuse Hematochezia GERD (gastroesophageal reflux disease) RICH (generalized anxiety disorder) Surgical History Surgical History History of colostomy reversal History of colostomy Family History Family History Father Acute myocardial infarction in sleep from heart attack Grandparent Breast cancer Other Colon cancer Other Diabetes mellitus Heart disease Social History Social History Smoking packs per day: 1 Smoking cigarettes per day: 20.0 Years smoked: 5 Smoking pack-years: 5.00 Smoking status: Current every day smoker Tobacco type: cigarettes Alcohol intake: current Drinks per week: 14 Alcohol use details: DRINKS ON WEEKENDS, MULTIPLE BEER AND VODKA, PRIOR PT DRANK DAILY Substance use: never Substance use type: does not use Lack of Transportation: No Lack of Food: Never True Current Housing: I Have Housing Concerned About Future Housing: No Difficulty Paying Gas/Electric Bills: No Difficulty Paying for Meds: No Currently Unemployed: YES Education: High School Diploma/GED Difficulty w/ Childcare or Family Care: No Living arrangements: with family Spiritual care concerns: No Exam 2 Narrative: ?White male patient with no apparent distress.? Head normocephalic, atraumatic.? Eyes conjunctiva pink sclera nonicteric.? Extraocular movements are intact.? Ears externally normal.? Oropharynx is clear with moist mucous membranes without exudates.? Neck is supple nontender no lymphadenopathy.? Back is nontender.? Lungs Bronchial breath sounds without rales or rhonchi or wheezing..? Heart is regular rate and rhythm without murmurs gallops or rubs.? Chest wall nontender. Abdomen is soft and nontender no hepatosplenomegaly or masses no CVA tenderness no abdominal bruits.? Extremities no cyanosis clubbing or edema.? Skin is warm and dry without rashes or lesions.? Neurological patient is alert and oriented x 4. Motor and sensory grossly intact.? Gait is normal. Course Vital Signs Vital signs: Vital Signs Temperature 36.3 C L 05/10/25 09:27 Pulse Rate 82 05/10/25 09:27 Respiratory Rate 18 05/10/25 09:27 Blood Pressure 141/96 H 05/10/25 09:27 Pulse Oximetry 96 05/10/25 09:27 Oxygen Delivery Room Air 05/10/25 09:27 Temperature 37.1 C 05/10/25 11:26 Pulse Rate 93 05/10/25 11:26 Respiratory Rate 17 05/10/25 11:26 Blood Pressure 125/72 05/10/25 11:26 Pulse Oximetry 94 05/10/25 11:26 Oxygen Delivery Room Air 05/10/25 11:26 Medical Decision Making MDM Narrative Medical decision making narrative: Patient was placed in Room # One with his fikarene History and physical was performed. Blood cultures obtained CBC Normal CMP normal at troponin normal D-dimer normal coags normal Independent Historian: todd External Source Review: Differential Dx includes but not limited to: asthmatic bronchitis pneumonia acute coronary syndrome Medications were Reviewed: home meds reviewed Independently Interpreted by me: EKG shows sinus rhythm at a rate of 73 borderline left axis deviation incomplete right bundle branch block nonspecific T-wave abnormality impression borderline EKG is independently interpreted by me. chest x-ray showed no active disease as independently reviewed by me as well as over-read by radiologist. Meds, treatment, ED course: albuterol nebulizer . 10:40 a.m. patient stated he was able to breathe a little bit better after his 1st albuterol treatment. Will give a 2nd nebulizer treatment. Social Situation Impacting Patients Care: Shared decision Making: evaluation was discussed all questions were asked and answered patient agreed with the plan. Take prednisone 40 mg daily for 5 days, albuterol 2 puffs 4 times a day for 10 days, and doxycycline 100 mg twice a day for [address] STEVENS DIAGNOSIS: Asthmatic bronchitis DISPOSITION: discharge home CONDITION AT DISCHARGE: stable Vital Signs Vital Signs: Vital Signs Temperature 36.3 C L 05/10/25 09:27 Pulse Rate 82 05/10/25 09:27 Respiratory Rate 18 05/10/25 09:27 Blood Pressure 141/96 H 05/10/25 09:27 Pulse Oximetry 96 05/10/25 09:27 Oxygen Delivery Room Air 05/10/25 09:27 Temperature 37.1 C 05/10/25 11:26 Pulse Rate 93 05/10/25 11:26 Respiratory Rate 17 05/10/25 11:26 Blood Pressure 125/72 05/10/25 11:26 Pulse Oximetry 94 05/10/25 11:26 Oxygen Delivery Room Air 05/10/25 11:26 Lab Data 05/10/25 10:16 05/10/25 10:16 Labs: Lab Results 05/10/25 Range/Units 10:16 WBC 10.8 (4.8-10.8) K/mm3 RBC 4.97 (4.70-6.10) M/mm3 Hgb 15.5 (14.0-18.0) g/dL Hct 44.8 (40.0-54.0) % MCV 90.1 (78.0-102.0) fL MCH 31.2 H (27.0-31.0) pg MCHC 34.6 (32-36) g/dL RDW 11.6 (11.6-14.4) % Plt Count 252 (150-420) K/mm3 MPV 9.6 (8.7-11.0) fl Immature Gran % (Auto) 1.0 H (0.0-0.0) % Neut % (Auto) 63.2 (50.0-70.0) % Lymph % (Auto) 25.0 (18.0-42.0) % [place] % (Auto) 8.8 (2.0-11.0) % Eos % (Auto) 1.2 (1.0-6.0) % Baso % (Auto) 0.8 (0.0-1.0) % Lymph # (Auto) 2.70 (1.10-4.50) K/mm3 [place] # (Auto) 0.95 H (0.10-0.90) K/mm3 Eos # (Auto) 0.13 (0.02-0.50) K/mm3 Baso # (Auto) 0.09 (0.00-0.10) K/mm3 Abs Immat Gran (auto) 0.11 H (0.00-0.00) K/mm3 Absolute Neuts (auto) 6.83 (1.70-7.20) K/mm3 Absolute Nucleated RBC 0.00 (0.00-0.00) K/mm3 Nucleated RBC % 0.0 (0-0.0) % PT 11.0 (9.50-12.1) Seconds INR 1.0 APTT 28.1 (23.9-30.70) Sec D-Dimer 0.19 (0.19-0.50) mg/L Sodium 139 (137-145) mmol/L Potassium 4.0 (3.4-5.0) mmol/L Chloride 103 (98-107) mmol/L Carbon Dioxide 29 (22-30) mmol/L Anion Gap 7 (4-12) mmol/L BUN 17 (9-20) mg/dL Creatinine 0.97 (0.7-1.3) mg/dL Estim Creat Clear Calc 108 ml/min Estimated GFR > 60 (59 - ) Glucose 127 H (65-110) mg/dL Calculated Osmolality 291 (285-295) mOsm/kg Calcium 8.8 (8.4-10.2) mg/dL Total Bilirubin 0.5 (0.2-1.3) mg/dL AST 34 (17-59) U/L ALT 42 (6-50) U/L Alkaline Phosphatase 104 (38-126) U/L Troponin I < 0.012 (0.000-0.034) ng/mL Total Protein 7.5 (6.3-8.2) g/dL Albumin 4.2 (3.5-5.1) g/dL Discharge Plan Discharge Clinical Impression: Acute asthmatic bronchitis Patient Disposition: Home Condition: Stable Instructions: Antibiotic Form Additional Instructions: take doxycycline 100 mg twice a day for 10 days, albuterol meter dose inhaler 2 puffs 4 times a day with spacer for 10 days, prednisone 40 mg daily for 5 days. Follow-up with primary care provider. Return if you get worse or develops any new symptoms. Patient Language: Burundian Prescriptions: New doxycycline hyclate 100 mg tablet 100 mg PO BID 10 Days Qty: 20 0RF prednisone 20 mg tablet 40 mg PO DAILY 5 Days Qty: 10 0RF albuterol sulfate 90 mcg/actuation aerosol powdr breath activated 2 inh inhalation QID PRN (Reason: shortness of breath or wheezing) 10 Days Qty: 1 0RF No Action benzonatate 200 mg capsule 200 mg PO BID PRN (Reason: cough) Qty: 20 0RF metoprolol tartrate 25 mg tablet 20 mg PO BID Adults Multivitamin 18 mg iron-400 mcg-25 mcg Tablet 1 tablet PO DAILY duloxetine 30 mg capsule,delayed release(DR/EC) 30 mg PO DAILY Qty: 90 0RF lisinopril-hydrochlorothiazide 20-25 mg tablet See Rx Instructions .ROUTE .COMPLEX Qty: 90 0RF Dose Instruction: TAKE 1 TABLET BY MOUTH EVERY DAY Rx Instructions: TAKE 1 TABLET BY MOUTH EVERY DAY nicotine 21 mg/24 hr patch 24 hour 1 patch transdermal DAILY Qty: 28 0RF Follow-up/Referrals: Hever Nuñez DO [Primary Care Provider] - Time of Disposition: 11:17
--- NOTE | 2025-05-10 09:52 | ECG_ITS ---
Test Date: 2025-05-10 10:27:22 Measurements Intervals [place] Rate: 73 P: 62 CO: 154 QRS: -22 QRSD: 98 T: -5 QT: 408 QTc: 452 Interpretive Statements SINUS RHYTHM INCOMPLETE RIGHT BUNDLE BRANCH BLOCK NONSPECIFIC T-WAVE ABNORMALITY- INF/LAT LEADS BORDERLINE ECG No previous ECG available for comparison Electronically Signed On 05-10-2025 12:04:29 CDT by Edilson Estevez D.O.
[2025-05-10] MEDS: ALBUTEROL SULFATE NEB 2.5 MG/3 ML INH INHALATION (10:07)
--- OUTSIDE RECORDS SUMMARY | 2025-05-10 10:17 | XMS_ITS | Clinical Summary ---
Author Organization [facility] Address [address] [address] Phone Care Team Providers Care School Laboratory Technician Name Role Phone Arcadio Francis MD Primary [...] Overview (12/16/2024): Father at 59 due to [place] Generalized anxiety disorder 12/16/2024 Essential hypertension, benign 12/16/2024 Family History Medical History Relation Name Comments [...] drink = 0.6 oz pur e alcohol) [facility] Utilities Answer Date Recorded In the [...] week 12/16/2024 How often do you attend samaritan or hinduism serv ices? Never 12/16/2024 Do you belong to any clubs o r organizations such as samaritan groups, unions, fraternal or athletic groups, or [...] Total Score - Questions 1-9 0 11/25 [facility] [place] of Occupat ional Health - Occupational Stress [...] any time in the past 12 m [facility], were you homeless or living in a [...] Comments Blood Pressure 147/101 01/10/2025 9:15 AM CEPHALOMETRIC TRACER Pulse 61 01/10/2025 9:15 AM CEPHALOMETRIC TRACER Temperature 35.9 C (96.6 F) 01/10/2025 7:33 AM CEPHALOMETRIC TRACER Respiratory Rate 16 01/10/2025 9:15 AM CEPHALOMETRIC TRACER Oxygen Saturation 96% 01/10/2025 9:15 AM CEPHALOMETRIC TRACER Inhaled Oxygen Concentration - - Weight 105.2 kg (232 lb) 01/10/2025 7:33 AM CEPHALOMETRIC TRACER Height 177.8 cm (5' 10) 01/10/2025 7:33 AM CEPHALOMETRIC TRACER Body Mass Index 33.29 01/10/2025 7:33 AM CEPHALOMETRIC TRACER Plan of Treatment Health Maintenance Due Date Last Done Comments Hepatitis C Virus (HCV) Screening 1980 TdaP Immunization 1980 Hepatitis B Immunization (1 of 3 - 19+ 3-dose series) 2000 Pneumococcal Immunization Combined (1 of 2 - PCV) 2000 SARS-COV-2 Immunization ( - season) 2024 06/14/2021, 05/21/2021, 02/16/2021, Additional [...] patient's age to complete this topic Insurance [facility] Care Teams School Laboratory Technician Relationship Specialty Start Date End Date Arcadio Francis MD [address] [place] [address] PCP - General Internal Medicine 12/16/24
[2025-05-10 10:22] LABS: Basophils Absolute Auto 0.09 K/mm3 (0.00-0.10); Basophils Percent Auto 0.8 % (0.0-1.0); Eosinophils Absolute Auto 0.13 K/mm3 (0.02-0.50); Eosinophils Percent Auto 1.2 % (1.0-6.0); Hematocrit 44.8 % (40.0-54.0); Hemoglobin 15.5 g/dL (14.0-18.0); Immature Granulocyte Absolute 0.11 K/mm3 (0.00-0.00); Mean Corpuscular HGB Conc 34.6 g/dL (32-36); Mean Corpuscular Hemoglobin 31.2 pg (27.0-31.0); Mean Corpuscular Volume 90.1 fL (78.0-102.0); Mean Platelet Volume 9.6 fl (8.7-11.0); Monocytes Absolute Auto 0.95 K/mm3 (0.10-0.90); Monocytes Percent Auto 8.8 % (2.0-11.0); Neutrophils Absolute Auto 6.83 K/mm3 (1.70-7.20); Neutrophils Percent Auto 63.2 % (50.0-70.0); Platelet Count Result 252 K/mm3 (150-420); Red Blood Count 4.97 M/mm3 (4.70-6.10); Red Cell Distribution Width 11.6 % (11.6-14.4); White Blood Count 10.8 K/mm3 (4.8-10.8)
[2025-05-10 10:33] LABS: Alanine Aminotransferase 42 U/L (6-50); Albumin Level 4.2 g/dL (3.5-5.1); Alkaline Phosphatase 104 U/L (38-126); Anion Gap 7 mmol/L (4-12); Aspartate Amino Transferase 34 U/L (17-59); Bilirubin,Total 0.5 mg/dL (0.2-1.3); Blood Urea Nitrogen 17 mg/dL (9-20); Calcium 8.8 mg/dL (8.4-10.2); Carbon Dioxide 29 mmol/L (22-30); Chloride 103 mmol/L (98-107); Estimated CRCL calculation 108 ml/min; Estimated Glomerular Filt Rate > 60; Glucose 127 mg/dL (65-110); Osmolality Calculated 291 mOsm/kg (285-295); Sodium 139 mmol/L (137-145); Total Protein 7.5 g/dL (6.3-8.2)
[2025-05-10 10:35] LABS: D Dimer 0.19 mg/L (0.19-0.50); Partial Thromboplastin Time 28.1 Sec (23.9-30.70)
[2025-05-10 10:45] LABS: Troponin I < 0.012 ng/mL (0.000-0.034)
--- OUTSIDE RECORDS SUMMARY | 2025-05-10 10:52 | XMS_ITS | Clinical Summary ---
Author Organization [facility] Address [address] [address] Phone Care Team Providers Care Logging Superintendent Name Role Phone Arcadio Francis MD Primary [...] Overview (12/16/2024): Father at 59 due to [place] Generalized anxiety disorder 12/16/2024 Essential hypertension, benign [...] drink = 0.6 oz pur e alcohol) [facility] Utilities Answer Date Recorded In the [...] week 12/16/2024 How often do you attend shinto or buddhism serv ices? Never 12/16/2024 Do you belong to any clubs o r organizations such as shinto groups, unions, fraternal or athletic groups, or [...] Total Score - Questions 1-9 0 11/25 [facility] [place] of Occupat ional Health - Occupational Stress [...] any time in the past 12 m [facility], were you homeless or living in a retirement (including now)? No 12/16/2024 Sexually Active Control Partners Comments Yes Sex and Gender Information Value Date Recorded Sex Assigned at Not on file Legal Sex Male 2:37 PM CDT Gender Identity Not on file Sexual Orientation Not on file Last Filed Vital Signs Vital Sign Reading Time Taken Comments Blood Pressure 147/101 01/10/2025 9:15 AM WATCH AND CLOCK MAKER AND REPAIRER Pulse 61 01/10/2025 9:15 AM WATCH AND CLOCK MAKER AND REPAIRER Temperature 35.9 C (96.6 F) 01/10/2025 7:33 AM WATCH AND CLOCK MAKER AND REPAIRER Respiratory Rate 16 01/10/2025 9:15 AM WATCH AND CLOCK MAKER AND REPAIRER Oxygen Saturation 96% 01/10/2025 9:15 AM WATCH AND CLOCK MAKER AND REPAIRER Inhaled Oxygen Concentration - - Weight 105.2 kg (232 lb) 01/10/2025 7:33 AM WATCH AND CLOCK MAKER AND REPAIRER Height 177.8 cm (5' 10) 01/10/2025 7:33 AM WATCH AND CLOCK MAKER AND REPAIRER Body Mass Index 33.29 01/10/2025 7:33 AM WATCH AND CLOCK MAKER AND REPAIRER Plan of Treatment Health Maintenance Due Date [...] patient's age to complete this topic Insurance [facility] Care Teams Logging Superintendent Relationship Specialty Start Date End Date Arcadio Francis MD [address] [place] [address] PCP - General Internal Medicine 12/16/24
[2025-05-10] MEDS: IPRATROPIUM 0.5 MG/ALBUTEROL SULFATE 2.5 MG AMPUL.NEB 3 ML INHALATION (10:56)
--- NOTE | 2025-05-11 13:31 | PC.NURSE ---
x2 prelim blood cx state no growth to date.
--- NOTE | 2025-05-16 12:48 | PC.NURSE ---
blood culture no growth
== END 2025-05-10 11:26 | disposition home or self-care (01) ==
PROVIDERS: Emergency Provider Emergency Medicine; PCP Family Medicine
DX: J20.9 Acute bronchitis, unspecified (principal); F17.210 Nicotine dependence, cigarettes, uncomplicated; Z79.899 Other long term (current) drug therapy
CPT/HCPCS: 36415; 71046; 80053; 84484; 85025; 85380; 85610; 85730; 87040; 93005; 94640; 99284

== ENCOUNTER 2025-05-23 09:06 | Outpatient (CLI) | payer BC, SELFPAY ==
--- NOTE | 2025-05-23 09:10 | EST_ITS ---
Patient Info Name: Vinicio Jules Age: 44 years : 1980 Gender: Male Ht: 70 in Wt: 243 lbs BSA: 2.37 m2 HR: 75 bpm BP: 123 / 56 mmHg Heart Rhythm: Sinus Rhythm Technical Quality: Good Exam Date: 05/23/2025 9:10 AM Patient Status: O Admit Date: 05/23/2025 Exam Type: CA stress kacey w NM A regadenoson stress test was performed. Staff Referring Physician: Hever Nuñez Attending Provider: Hever Nuñez Summary 1. 1. Negative lexiscan stress test for ischemic ST changes by ECG criteria. 2. 2. Stable hemodynamics throughout the test. 3. 3. Nuclear scan to follow and will be reported separately. Please correlate with it. History/Risk Factors Hypertension: Yes Tobacco Use: Current - Every Day Protocol: LEXISCAN Stress ECG Details Stage: REST Duration (min): 1 min : 33 sec HR (bpm): 75 SBP (mmHg): 123 DBP (mmHg): 56 Stage: REST Duration (min): 6 min : 27 sec HR (bpm): 73 SBP (mmHg): 123 DBP (mmHg): 56 Stage: STAGE 1 Duration (min): 0 min : 21 sec HR (bpm): 66 SBP (mmHg): 123 DBP (mmHg): 56 Stage: RECOVERY Duration (min): 0 min : 38 sec HR (bpm): 83 SBP (mmHg): 123 DBP (mmHg): 56 Stage: RECOVERY Duration (min): 1 min : 38 sec HR (bpm): 86 SBP (mmHg): 123 DBP (mmHg): 56 Stage: RECOVERY Duration (min): 2 min : 38 sec HR (bpm): 86 SBP (mmHg): 102 DBP (mmHg): 62 Stage: RECOVERY Duration (min): 3 min : 38 sec HR (bpm): 91 SBP (mmHg): 106 DBP (mmHg): 64 Stage: RECOVERY Duration (min): 4 min : 38 sec HR (bpm): 81 SBP (mmHg): 108 DBP (mmHg): 64 Stage: RECOVERY Duration (min): 5 min : 38 sec HR (bpm): 77 SBP (mmHg): 119 DBP (mmHg): 69 Stage: RECOVERY Duration (min): 6 min : 12 sec HR (bpm): 81 SBP (mmHg): 119 DBP (mmHg): 69 Rest HR: 73 bpm Peak HR: 91 bpm Rest Sys BP: 123 mmHg Peak Sys BP: 119 mmHg Max Pred HR: 177 bpm % Max Pred HR: 51 % Target HR: 150 bpm Max RPP: 10,829 bpm*mmHg BP Response: Normal blood pressure response Termination Reason: Completed Protocol Cardiac Symptoms: None Total Time: 0 min : 21 sec Rest Beavers BP: 56 mmHg Peak Beavers BP: 69 mmHg Total Dose: 0.4 mg Resting ECG Normal sinus rhythm, delayed precordial R/S transition. Stress ECG No abnormal ST/T wave changes. Arrhythmias No arrhythmias were observed during the examination. Report Signatures
--- NOTE | 2025-05-23 13:32 | WPDCARIOSTRE ---
Nuclear Stress Test INDICATIONS Indications: Chest pain, Preop PROCEDURE Procedure Performed: Myocardial Perf Spect-Multi Procedure: Patient underwent a lexiscan stress test and immediately was injected with 32.9 mCi of cardiolyte. Multiple tomographic images were obtained. There is a small size, mild severity apical perfusion defect with stress imaging. A separate resting images were obtained after patient was injected with 10.4 mCi of cardiolyte. Multiple tomographic images were obtained. There is a small size, mild severity apical perfusion defect with rest imaging. CONCLUSION Conclusion: 1. Myocardial perfusion imaging demonstrating a fixed small size apical perfusion defect suggestive of attenuation artifact. 2. No evidence of reversible ischemia. 3. Left ventriculogram demonstrates normal measured ejection fraction of 79% with no wall motion abnormalities. 4. TID score 0.78 is not elevated.
== END 2025-05-23 09:07 | disposition home or self-care (01) ==
LOC: CHSCARD 09:06
PROVIDERS: PCP Family Medicine; Visit Provider Family Medicine
DX: R07.9 Chest pain, unspecified (principal); S83.207A Unspecified tear of unspecified meniscus, current injury, left knee, initial encounter; Z82.49 Family history of ischemic heart disease and other diseases of the circulatory system; R68.89 Other general symptoms and signs
CPT/HCPCS: 78452; 93017; A9502; J2785

== ENCOUNTER 2025-06-01 12:51 | Outpatient (CLI) | payer BC, SELFPAY ==
--- OUTSIDE RECORDS SUMMARY | 2025-06-01 12:55 | XMS_ITS | Clinical Summary ---
Author Organization [facility] Address [address] [address] Phone Care Team Providers Care Membership Sales Advisor Name Role Phone Arcadio Francis MD Primary [...] Overview (12/16/2024): Father at 59 due to [place] Generalized anxiety disorder 12/16/2024 Essential hypertension, benign [...] drink = 0.6 oz pur e alcohol) [facility] Utilities Answer Date Recorded In the [...] week 12/16/2024 How often do you attend judaism or mandaeism serv ices? Never 12/16/2024 Do you belong to any clubs o r organizations such as judaism groups, unions, fraternal or athletic groups, or [...] Total Score - Questions 1-9 0 11/25 [facility] [place] of Occupat ional Health - Occupational Stress [...] No 12/16/2024 Housing Stability Vital Sign Answer Ygoesh e Recorded In the last 12 months, was t here a time when you were not able to pay the mortgage or rent on time? Yes 12/16/2024 In the past 12 months, how m any times have you moved where you were living? 1 12/16/2024 At any time in the past 12 m [facility], were you homeless or living in a detention (including now)? No 12/16/2024 Sexually Active Control Partners Comments Yes Sex and Gender Information Value Date Recorded Sex Assigned at Not on file Legal Sex Male 2:37 PM CDT Gender Identity Not on file Sexual Orientation Not on file Last Filed Vital Signs Vital Sign Reading Time Taken Comments Blood Pressure 147/101 01/10/2025 9:15 AM ENVIRONMENTAL PROTECTION OFFICER Pulse 61 01/10/2025 9:15 AM ENVIRONMENTAL PROTECTION OFFICER Temperature 35.9 C (96.6 F) 01/10/2025 7:33 AM ENVIRONMENTAL PROTECTION OFFICER Respiratory Rate 16 01/10/2025 9:15 AM ENVIRONMENTAL PROTECTION OFFICER Oxygen Saturation 96% 01/10/2025 9:15 AM ENVIRONMENTAL PROTECTION OFFICER Inhaled Oxygen Concentration - - Weight 105.2 kg (232 lb) 01/10/2025 7:33 AM ENVIRONMENTAL PROTECTION OFFICER Height 177.8 cm (5' 10) 01/10/2025 7:33 AM ENVIRONMENTAL PROTECTION OFFICER Body Mass Index 33.29 01/10/2025 7:33 AM ENVIRONMENTAL PROTECTION OFFICER Plan of Treatment Health Maintenance Due Date [...] patient's age to complete this topic Insurance [facility] Care Teams Membership Sales Advisor Relationship Specialty Start Date End Date Arcadio Francis MD [address] [place] [address] PCP - General Internal Medicine 12/16/24
--- NOTE | 2025-06-17 14:56 | WPDPFTINT ---
PFT Procedure Performed PFT Procedure Performed Spirometry with Pre/Post Bronchodilator Plethysmography (Lung Vol) Diffusing Cap (DLCO) Flow Vol Loop PFT Interpretation DOS: 06/01/2025 REQUESTING: Dr Beau Jennings REASON FOR TESTING: Cough PULMONARY FUNCTION TESTS Results are reliable and reproducible. Repeatability of spirometry FEV1 maneuver pre and post bronchodilator is Grade A. [place]: [place] reference equations were used. Spirometry: The pre-bronchodilator FEV1 is 3.44 L, 93%. The pre-bronchodilator FVC is 4.30 L, 94%. The FEV1/FVC ratio is 80%. After bronchodilator, the FEV1 is 3.59 L, 98%, +4%. After bronchodilator, the FVC is 4.39 L, 95%, +2%. The FEV1/FVC ratio is 82%. Lung volumes: The total lung capacity is 5.73 L, 87%. The FRC is 1.38 L, 47%. The residual volume is 0.90 L, 45%. The RV/TLC is 16%, reduced. Airway resistance is elevated. Diffusion: DLCO is 27.1, 86%. The DLCO/VA is 4.78, 113%. Flow volume loop: The flow volume loop shows a normal tracing. IMPRESSION: This study shows normal spirometry without a significant response to bronchodilator, normal lung volumes and normal diffusion. Compared to a study on 07/18/2023, values are similar. Christy Mcgee MD
== END 2025-06-01 12:52 | disposition home or self-care (01) ==
LOC: CHSCARD 12:52
PROVIDERS: PCP Family Medicine; Visit Provider Family Medicine
DX: J44.89 Other specified chronic obstructive pulmonary disease (principal)
CPT/HCPCS: 94060; 94726; 94729

== ENCOUNTER 2025-06-30 02:56 | Day surgery (SDC) | payer BC, SELFPAY ==
[2025-06-24 09:29] VITALS: BMI 36.0
--- NOTE | 2025-06-24 09:41 | PC.NURSE ---
Report to the Outpatient Waiting Room, entrance under the green pavilion located off [facility], at time _0700_ on date _[id number]_. Planned Procedure Time: _0900_.? Time changes happen often and if your time is changed the preop area will call you the afternoon before. - You and your visitor will be asked to self-screen and do not enter if you have any COVID symptoms. Please call surgeon if you need to reschedule. - A mask is optional within the hospital at this time. Patients may have clear liquids (water, carbonated beverages, clear teas, apple juice) until 3 hours prior to surgery with a maximum of 20 ounces. - No food from midnight until time of surgery and no smoking, or chewing tobacco (or any form of nicotine). No chewing gum, candy or mints. Take only the following medications with a SIP of water on the morning of surgery: ___Duloxetine, Metoprolol and if needed Inhaler____ DO NOT STOP ANY OF YOUR OTHER PRESCRIPTION MEDICATIONS PRIOR TO SURGERY EXCEPT THE FOLLOWING Hold all vitamins and supplements for 3 days per anesthesiologist. Medications to discontinue per physician Date to take last [id number]___ Please no make-up, nail mauritanian, hairspray, perfume, deodorant, or body powder the day of surgery.? No jewelry (including any body piercings) or valuables the day of surgery, leave them at home.? Please take a shower or bath the night before, or the morning of, surgery with an antibacterial soap.? Wear comfortable, loose fitting clothing.? - Jewelry must be removed prior to entering the operating room.? Rings and piercings that are not removed may be cut off. - The hospital will not accept responsibility for valuables.? - Please leave all valuables, including medications, at home the day of surgery. If you are going home after surgery, a licensed hydraulic lift driver must drive you home.? - NO public transportation without another adult if you receive anesthesia. - We recommend that an adult stay with you for 24 hours following discharge. - We also recommend that you do not drive, make important decision, drink alcoholic beverages, or take any drugs that were not prescribed by your health care provider for at least 24 hours after your discharge time. Follow any additional instructions given to you from your surgeon. Telephone instructions given to __Tim___and asked if any additional questions and then verbalized understanding. Patient advised to call surgeon office or pre surgery nurse liaison [phone] if any additional questions.
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
[2025-06-30] VITALS (9 sets, daily range): BP systolic 112–155; BP diastolic 71–91; PULSE 66–81; RESP 16–23; TEMP 36.9–37.5; O2SAT 93–100
--- OUTSIDE RECORDS SUMMARY | 2025-06-30 02:59 | XMS_ITS | Clinical Summary ---
Author Organization [facility] Address [address] [address] Phone Care Team Providers Care Corporate Safety Director Name Role Phone Arcadio Francis MD Primary [...] Overview (12/16/2024): Father at 59 due to [place] Generalized anxiety disorder 12/16/2024 Essential hypertension, benign [...] drink = 0.6 oz pur e alcohol) [facility] Utilities Answer Date Recorded In the [...] week 12/16/2024 How often do you attend islam or faith serv ices? Never 12/16/2024 Do you belong to any clubs o r organizations such as islam groups, unions, fraternal or athletic groups, or [...] Total Score - Questions 1-9 0 11/25 [facility] [place] [facility] Occupat ional [facility] - Occupational Stress [...] any time in the past 12 m [facility], were you homeless or living in a custodial (including now)? No 12/16/2024 Sexually Active Control Partners Comments Yes Sex and Gender Information Value Date Recorded Sex Assigned at Not on file Legal Sex Male 2:37 PM CDT Gender Identity Not on file Sexual Orientation Not on file Last Filed Vital Signs Vital Sign Reading Time Taken Comments Blood Pressure 147/101 01/10/2025 9:15 AM [employer]ATION [employer] ENGINEER Pulse 61 01/10/2025 9:15 AM [employer]OMATION AND CONTR[employer] ENGINEER Temperature 35.9 C (96.6 F) 01/10/2025 7:33 AM AUTOMATION AND CONTROL ENGINEER Respiratory Rate 16 01/10/2025 9:15 AM AUTOMATION AND CONTROL ENGINEER Oxygen Saturation 96% 01/10/2025 9:15 AM AUTOMATION AND CONTR[employer] ENGINEER Inhaled Oxygen Concentration - - Weight 105.2 kg (232 lb) 01/10/2025 7:33 AM [employer]OMATION AND CONTROL ENGINEER Height 177.8 cm (5' 10) 01/10/2025 7:33 AM [employer]OMATION AND CONTR[employer] ENGINEER Body Mass Index 33.29 01/10/2025 7:33 AM [employer]ATION AND CONTR[employer] ENGINEER Plan of Treatment Health Maintenance Due Date Last Done Comments Hepatitis C Virus (HCV) Screening 1981 TdaP Immunization 1981 Hepatitis B Immunization (1 of 3 - 19+ 3-dose series) 2000 Pneumococcal Immunization Combined (1 of 2 - PCV) 2000 Human Papillomavirus (HPV) Immunization (1 - 3-dose SCDM series) 2008 SARS-COV-2 Immunization ( season) 2024 06/14/2021, 05/21/2021, 02/16/2021, Additional history exists Influenza Immunization (#1) 2025 Respiratory Syncytial Virus (RSV) Immunization (Adult) (1 - 1-dose 75+ series) 2056 Meningococcal Immunization (ACWY) Aged Out No longer eligible based on patient's age to complete this topic Rotavirus Immunization Aged Out No lo nger eligible based on patient's age to complete this topic Insurance [facility] Care Teams Corporate Safety Director Relationship Specialty Start Date End Date Arcadio Francis MD [address] [place] [address] PCP - General Internal Medicine 12/16/24
--- NOTE | 2025-06-30 06:36 | WPDHPUPDATE1 ---
History and Physical Update Update Date/Time: 06/30/25 06:36 History and Physical has been reviewed, including an updated exam of the patient. There are NO changes in the patient's condition. Risks, benefits, and alternatives have been discussed and questions answered. Patient agrees to proceed with procedure.
[2025-06-30] MEDS: KETOROLAC 15 MG/ML VIAL (*BKC) IV PUSH (07:30)
[2025-06-30] MEDS: ACETAMINOPHEN 500 MG TABLET 1000 MG PO (07:30)
[2025-06-30] MEDS: LACTATED RINGERS 1,000 ML 30 ML IV CONT ×4 (07:45→10:06)
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
[2025-06-30] MEDS: ceFAZolin 2 GM in SODIUM CHLORIDE 0.9% IV 50 ML 100 ML IVPB (08:56)
[2025-06-30] MEDS: BUPIVACAINE/EPINEPHRINE 0.5% 50 ML VIAL 10 ML INFILTRATE (09:32)
--- NOTE | 2025-06-30 10:23 | P.OP_ITS ---
Procedure Note - Detailed Date of Procedure 06/30/25 Pre-op Diagnosis lt knee pain, medial meniscal tear, chondromalacia patella/ MFC Post-op Diagnosis Other (Left knee medial meniscus tear, chondromalacia medial femoral condyle and patellofemoral joint, anterior synovitis extending medial and lateral gutters) Procedure Performed left knee arthroscopy with partial medial meniscectomy, extensive (major) synovectomy and chondroplasty of the patellofemoral and medial compartments. Surgeon Cipriano Longo MD Staff Nurse [facility] Resource Team Scrub Anesthesia General Indications 45 year old man with left knee injury. Now with pain, catching and locking. MRI demonstrates medial meniscus tear, chondromalacia, synovitis. Has failed conservative treatment with therapy, activity modification, exercises. Presents for operative treatment. Findings Complex tear of the posterior horn medial meniscus extending to the medial root. Grade 3 chondromalacia patella articulation and grade 2 chondromalacia of the corresponding femoral trochlea. Evidence of impaction type injury to the central patellar articular surface and anterior synovium. Grade 2 chondromalacia medial femoral condyle. Lateral meniscus and lateral compartment intact. ACL, PCL intact. Hypertrophic synovium anterior fat pad, anterior knee joint, medial and lateral gutter. Description of Procedure Informed consent given by patient. Operative extremity marked in preoperative holding area. Patient received intravenous antibiotics. Patient brought to operating room and underwent general anesthetic by anesthesia team. Positioned supine on operating room table. Left leg placed into a posterior thigh leg marr. Foot of the table dropped to 90? and right leg padded out of the field. Time-out performed confirming patient, site of surgery and plan. Left knee prepped and draped in usual sterile surgical fashion using ChloraPrep skin solution. Standard arthroscopic portals made by using an 11 blade knife for the anterior lateral portal 1st. Capsule penetrated bluntly. Camera and inflow started. The above operative findings noted. Intra-articular visualization used to position the anterior medial portal using 22 gauge spinal needle. An 11 blade knife used for the skin and blunt penetration of the capsule. 4.7 millimeter arthroscopic shaver introduced and partial medial meniscectomy of the loose and torn portion performed. Edge of meniscus completed with arthroscopic Wand. Arthroscopic Wand used to perform chondroplasty of the patellofemoral articulation and the medial femoral condyle. There was extensive wear on the femoral trochlea through most of the trochlea. This was debrided with the arthroscopic Wand and the shaver and finished with the Wand. Shaver reintroduced and a synovectomy performed of the anterior fat pad and extensive synovium as well as medial and lateral plica and medial and lateral gutters. The loose hypertrophic synovium which was impinging in the patellofemoral space was excised. Bleeding points coagulated with Wand. Knee inspected, no loose pieces noted. 1 liter of irrigant infused and suctioned out. Arthroscopic cannulas removed. Skin closed with 4 O nylon interrupted suture. Local anesthetic with 0.25% Marcaine. Sterile dressing applied. Patient awoken from anesthesia, extubated and taken to recovery room in stable condition. All sponge needle and instrument counts correct at the end of the case. Implants None Estimated Blood Loss 5 Tourniquet Time Total Tourniquet Time: 0 Drains No Packing No Pathology None sent Complications None Condition Stable Disposition PACU [facility] Billing Surgery - Charge Forward: Surgery Billing ([id number], [id number], [id number])
== END 2025-06-30 11:32 | disposition home or self-care (01) ==
PROVIDERS: PCP Family Medicine; Visit Provider Orthopaedic Surgery
PROC: (CPT 29870; principal; 2025-06-30 09:00)
DX: S83.232A Complex tear of medial meniscus, current injury, left knee, initial encounter (principal); M94.262 Chondromalacia, left knee; K21.9 Gastro-esophageal reflux disease without esophagitis; F41.9 Anxiety disorder, unspecified; F41.8 Other specified anxiety disorders; I45.10 Unspecified right bundle-branch block; F17.210 Nicotine dependence, cigarettes, uncomplicated; X58.XXXA Exposure to other specified factors, initial encounter; E66.9 Obesity, unspecified; Z68.37 Body mass index [BMI] 37.0-37.9, adult; Z79.51 Long term (current) use of inhaled steroids; Z79.891 Long term (current) use of opiate analgesic; Z79.1 Long term (current) use of non-steroidal anti-inflammatories (NSAID); Z98.890 Other specified postprocedural states; Z93.3 Colostomy status; Z80.3 Family history of malignant neoplasm of breast; Z80.0 Family history of malignant neoplasm of digestive organs; Z82.49 Family history of ischemic heart disease and other diseases of the circulatory system
CPT/HCPCS: 29881; 29876; J0690; A9270; J1100; J1885; J2250; J2405; J2704; J3010; J7120

== ENCOUNTER 2025-08-08 14:41 | Outpatient (CLI) | payer BC, SELFPAY ==
--- NOTE | ~2025-08-08 | XR_ITS ---
EXAMINATION: XR knee LT min 4V, 08/08/2025 14:42 CDT HISTORY: f/u lt knee meniscus repair COMPARISON: No comparisons available. Findings: No acute fracture or malalignment. Moderate tricompartmental degenerative changes Soft tissues unremarkable. Impression: No acute fracture or malalignment. Reviewed, dictated and finalized at location A. Impression: No acute fracture or malalignment.
== END 2025-08-08 14:42 | disposition home or self-care (01) ==
LOC: ANHBWCIMG 14:41
PROVIDERS: PCP Family Medicine; Visit Provider Orthopaedic Surgery
DX: M25.562 Pain in left knee (principal)
CPT/HCPCS: 73564

== ENCOUNTER 2025-08-24 10:15 | Outpatient (RCR) | payer BC, SELFPAY ==
--- NOTE | 2025-07-18 09:19 | PTOPEVAL1 ---
Assessment and note entered by Mike Vergara Evaluation Information Assessment Status Evaluation ICD-10 Condition Codes (PT) Pain in left knee M25.562 Other ICD-10 Condition Codes ( s/p left knee arthroscopy PT) Onset 06/30/25 Subjective Information pt. reports that he underwent a left knee scope on 06/30/25. He reports that he has not been doing any exercise. Pt. 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 He states that he had 3-4 steps to enter the equipment. He states that he does have to be able to lift 100# occasionally for work. He states he has no pain and rest, but pain does increase with walking. He states that pain is 3/10 with walking for 10-15 minutes. He states that he had no complication prior to injuring his knee and states that his main goal is to walk normal and return to work. Reported Pain Level Pain Score 0: Self Report Assessment PT Clinical Summary Pt. is a 45 year old male who enters the clinic post left knee arthroscopy. He presents with impaired gait, impaired l.e. strength, edema, pain and impaired left knee ROM, leading to difficulty with all IADL's. Continued skilled PT is indicated in order to improve these areas to allow for improved mobility and assist in return to all work related duties. Plan of Care Interventions Electrical Stimulation,Gait Training,Hot Pack/Cold Pack,Manual Therapy,Neuro Re-education,Patient/ Caregiver Education,Therapeutic Activities, Therapeutic Exercise PT Services Indicated Yes Treatment Frequency and 2x/week x 10 visits Duration These treatments will address the objective and functional deficits as defined above. The patient will be advanced safely and appropriately in order for the patient to progress towards his/her prior level of function. Additional exercises will be introduced and as well as a comprehensive home exercise program upon discharge, if needed, ?to ensure carryover of functional gains achieved in the clinic. This treatment plan has been reviewed and agreement upon by the patient.
--- NOTE | 2025-08-11 13:10 | PCPTNOTE ---
Patient called & cancelled scheduled appointment this date due to severe leg pain. -Ursula Garza, PT
--- NOTE | 2025-08-24 11:30 | OPREHPOC ---
Outpatient Therapy Plan of Care This is a Multidisciplinary Plan of Care that may contain components documented by all disciplines (PT, OT, and ST.) PT Problem 1 PT Problem #1 Knowledge Deficit PT Goal 1 Goal / Goal Update Pt. will be independent with a HEP focusing on ROM jain and strength. Target Visit 2 Progress Met PT Problem 2 PT Problem #2 Pain PT Goal 1 Goal / Goal Update Pt. will report pain levels at 1/10 at worst with prolonged periods of standing. Target Visit 18 Progress Not Met PT Problem 3 PT Problem #3 Impaired Range of Motion PT Goal 1 Goal / Goal Update Pt. will present with 0-130 degrees left knee AROM . Target Visit 18 Progress Partially Met PT Problem 4 PT Problem #4 Impaired Functional Mobility PT Goal 1 Goal / Goal Update Pt. will present with less than 20% limitation on the LEFS. not met Pt. will be able to ascend and descend 10 steps with reciprocal pattern. not met Pt. will ambulate a duration of 6 minutes with equal right and left stance through duration for distance of greater than 1200' to return to all work related duties. not met Target Visit 18 Progress Not Met
--- NOTE | 2025-08-24 11:31 | PTOPREEVAL ---
Assessment and note entered by JT File, PT Evaluation Information Assessment Status Re-evaluation ICD-10 Condition Codes (PT) Pain in left knee M25.562 Other ICD-10 Condition Codes ( s/p left knee arthroscopy PT) Onset 06/30/25 Subjective Information patient reports he continues to have pain and swelling in the R knee. he reports this prevents him from being able to stand or walk much. he reports he has to use a cart to walk around the grocery store, and has been limiting his time standing and walking lately due to pain and swelling. Reported Pain Level Pain Score 4: Self Report Pain Score 3: Self Report Assessment PT Clinical Summary mr. avila presents to skilled PT services with continued problems with the L knee post knee arthroscopy on 06/30/25. he does display improved rom and strength from initial evaluation, but patient is still lacking in strength, rom, pain, and functional goals. he also has been complicated by continued swelling in the R knee. as he has not met his goals for therapy, he would benefit from continued skilled PT. Plan of Care Interventions Electrical Stimulation,Gait Training,Hot Pack/Cold Pack,Manual Therapy,Neuro Re-education,Patient/ Caregiver Education,Therapeutic Activities, Therapeutic Exercise PT Services Indicated Yes Treatment Frequency and 2x weekly for 8 more visits Duration These treatments will address the objective and functional deficits as defined above. The patient will be advanced safely and appropriately in order for the patient to progress towards his/her prior level of function. Additional exercises will be introduced and as well as a comprehensive home exercise program upon discharge, if needed, ?to ensure carryover of functional gains achieved in the clinic. This treatment plan has been reviewed and agreement upon by the patient.
--- NOTE | 2025-09-07 10:53 | PCPTNOTE ---
spoke with patients surgeon today. patient came in reporting fluid was recently drained and was told to reduce activities and focus on modalities and light rom. messages surgeon who confirms this course of action.
--- NOTE | 2025-09-28 11:13 | OPREHPOC ---
Outpatient Therapy Plan of Care This is a Multidisciplinary Plan of Care that may contain components documented by all disciplines (PT, OT, and ST.) PT Problem 1 PT Problem #1 Knowledge Deficit PT Goal 1 Goal / Goal Update Pt. will be independent with a HEP focusing on ROM baptism and strength. Target Visit 2 Progress Met PT Problem 2 PT Problem #2 Pain PT Goal 1 Goal / Goal Update Pt. will report pain levels at 1/10 at worst with prolonged periods of standing. Target Visit 18 Progress Not Met PT Goal 2 Goal / Goal Update continue Target Visit 24 PT Problem 3 PT Problem #3 Impaired Range of Motion PT Goal 1 Goal / Goal Update Pt. will present with 0-130 degrees left knee AROM . Target Visit 18 Progress Not Met PT Goal 2 Goal / Goal Update continue Target Visit 24 PT Problem 4 PT Problem #4 Impaired Functional Mobility PT Goal 1 Goal / Goal Update Pt. will present with less than 20% limitation on the LEFS. not met Pt. will be able to ascend and descend 10 steps with reciprocal pattern. not met Pt. will ambulate a duration of 6 minutes with equal right and left stance through duration for distance of greater than 1200' to return to all work related duties. not met Target Visit 18 Progress Not Met PT Goal 2 Goal / Goal Update continue Target Visit 24
--- NOTE | 2025-09-28 11:13 | PTOPEVAL1 ---
Assessment and note entered by Ursula Garza, PT Evaluation Information Assessment Status Progress ICD-10 Condition Codes (PT) Pain in left knee M25.562 Other ICD-10 Condition Codes ( s/p left knee arthroscopy PT) Onset 06/30/25 Subjective Information Vinicio Jules reports his left knee is still swollen, stiff, and he gets stabbing pain on the inside corner of the knee with walking. He has had his knee drained twice now and the fluid keeps coming back. He does not see Dr. Longo again until 10/17/25. He has not been able to return to work due to his knee and neck and has switched to [employer] because he can not perform daily activities. He needs assistance with donning socks and shoes. He can only walk short distance and has pain rated 4/10 with walking. He continues to struggle with stairs, squatting, and lifting as well. He has been taking it easier with daily activities and PT per Dr. Longo's orders after his last follow up. Reported Pain Level Pain Score 0: Self Report Assessment PT Clinical Summary Vinicio Jules has completed 18 skilled PT visits following a L knee arthroscopy on 06/30/25. He has had complications with fluid and has had it drained twice. He continues to have excess fluid about the knee and reports ongoing difficulty with walking, stairs, squatting, lifting, and dressing . He remains unable to work as well. He demonstrates measurable edema of 2.5 cm at the left superior patella pole. He continues to have impaired gait, decreased left knee AROM, and decreased left knee strength. He will continue to benefit from skilled PT until his next follow up with Dr. Longo on 10/17/25. He has not met his goals for therapy. Plan of Care Interventions Electrical Stimulation,Gait Training,Hot Pack/Cold Pack,Manual Therapy,Neuro Re-education,Patient/ Caregiver Education,Therapeutic Activities, Therapeutic Exercise PT Services Indicated Yes Treatment Frequency and 2x weekly for 6 more visits Duration These treatments will address the objective and functional deficits as defined above. The patient will be advanced safely and appropriately in order for the patient to progress towards his/her prior level of function. Additional exercises will be introduced and as well as a comprehensive home exercise program upon discharge, if needed, ?to ensure carryover of functional gains achieved in the clinic. This treatment plan has been reviewed and agreement upon by the patient.
--- NOTE | 2025-10-14 08:35 | PCPTNOTE ---
Cancelled session due to illness.
== END 2025-10-16 23:59 | disposition home or self-care (01) ==
LOC: CHSPT 10:15
PROVIDERS: Visit Provider Orthopaedic Surgery
DX: M25.562 Pain in left knee (principal); S83.207D Unspecified tear of unspecified meniscus, current injury, left knee, subsequent encounter
CPT/HCPCS: 97014; 97016; 97110; 97140; 97161; 97530; 97750; G0283

== ENCOUNTER 2025-09-27 00:55 | Day surgery (SDC) | payer OTHER, SELFPAY ==
--- NOTE | 2025-09-23 09:36 | SUR.PREOP ---
[facility] has started construction of its new state of the art ER which will open Spring 2026. With this, we anticipate parking may be a challenge for some our surgical patients and families. Parking spaces are limited but are available for all Surgical, obstetrics, and ER patients sharing this lot. If you arrive and find you are having a hard time finding a parking space, please note that we understand the challenges, please drive around the hospital and park near Hospital Entrance 1. When you enter this entrance, you can ask a volunteer to direct or take you back to the surgical waiting area to check in. We appreciate everyone?s understanding of these expected challenges while we build for your future. Report to the Outpatient Waiting Room, entrance under the green pavilion located off [address], at time _8AM__ on date __09/27/25___. Planned Procedure Time: _9AM___.? Time changes happen often and if your time is changed the preop area will call you the afternoon before. - You and your visitor will be asked to self-screen and do not enter if you have any COVID symptoms. Please call surgeon if you need to reschedule. - A mask is optional within the hospital at this time. Patients may have a light meal before procedure however nothing to eat or drink 2hrs prior.. Take only the following medications with a SIP of water on the morning of surgery: _normal scheduled meds__ DO NOT STOP ANY OF YOUR OTHER PRESCRIPTION MEDICATIONS PRIOR TO SURGERY EXCEPT THE FOLLOWING Medications to discontinue per physician __Advised patient to consult the surgeon regarding the Ibuprofen___ Date to take last dose__per surgeon's instructions____ Please no make-up, nail indonesian, hairspray, perfume, deodorant, or body powder the day of surgery.? No jewelry (including any body piercings) or valuables the day of surgery, leave them at home.? Please take a shower or bath the night before, or the morning of, surgery with an antibacterial soap.? Wear comfortable, loose fitting clothing.? - Jewelry must be removed prior to entering the operating room.? Rings and piercings that are not removed may be cut off. - The hospital will not accept responsibility for valuables.? - Please leave all valuables, including medications, at home the day of surgery. If you are going home after surgery, a licensed driver license examiner must drive you home.? - NO public transportation without another adult if you receive anesthesia. - We recommend that an adult stay with you for 24 hours following discharge. - We also recommend that you do not drive, make important decision, drink alcoholic beverages, or take any drugs that were not prescribed by your health care provider for at least 24 hours after your discharge time. Follow any additional instructions given to you from your surgeon. Telephone instructions given to __Vinicio___and asked if any additional questions and then verbalized understanding. Patient advised to call surgeon office or pre surgery nurse liaison [phone] if any additional questions.
[2025-09-23 09:40] VITALS: BMI 35.9
--- NOTE | ~2025-09-27 | XR_ITS ---
EXAMINATION: XR fluoroscopy no charge INDICATION: BLOCKS OF C2/3/4 MEDIAL BRANCH DORSAL RAMI . COMPARISON: None TECHNIQUE: 8 fluoroscopic images of the C-spine were obtained during medial branch block of C2-C4. Fluoroscopy exposure time was 109 seconds. Air Kerma 19.657 mGy. DAP 3.8969 mGym2. FINDINGS/IMPRESSION: No radiologist was present or involved at the time of the procedure. Static images were submitted for interpretation. Images demonstrate placement of needles and injection of contrast. Fluoroscopic documentation of status post nerve blocks. Please refer to the operative note for complete procedural details. Reviewed, dictated and finalized at location A. ING INSTRUCTOR
--- OUTSIDE RECORDS SUMMARY | 2025-09-27 00:58 | XMS_ITS | Clinical Summary ---
Author Organization [facility] Address [address] [address] Phone Care Team Providers Care Supervisor Decorating Name Role Phone Arcadio Francis MD Primary [...] Overview (12/16/2024): Father at 59 due to [place] Generalized anxiety disorder 12/16/2024 Essential hypertension, benign [...] 0.6 oz pur e alcohol) [facility] Utilities Answer Date Recorded In the [...] week 12/16/2024 How often do you attend yazidi or nondenominational serv ices? Never 12/16/2024 Do you belong to any clubs o r organizations such as yazidi groups, unions, fraternal or athletic groups, or [...] Total Score - Questions 1-9 0 11/25 [facility] [place] of Occupat ional Health - Occupational Stress [...] any time in the past 12 m [facility], were you homeless or living in a usp (including now)? No 12/16/2024 Sexually Active Control Partners Comments Yes Sex and Gender Information Value Date Recorded Sex Assigned at Not on file Legal Sex Male 2:37 PM CDT Gender Identity Not on file Sexual Orientation Not on file Last Filed Vital Signs Vital Sign Reading Time Taken Comments Blood Pressure 147/101 01/10/2025 9:15 AM BLOCK TRADER Pulse 61 01/10/2025 9:15 AM BLOCK TRADER Temperature 35.9 C (96.6 F) 01/10/2025 7:33 AM BLOCK TRADER Respiratory Rate 16 01/10/2025 9:15 AM BLOCK TRADER Oxygen Saturation 96% 01/10/2025 9:15 AM BLOCK TRADER Inhaled Oxygen Concentration - - Weight 105.2 kg (232 lb) 01/10/2025 7:33 AM BLOCK TRADER Height 177.8 cm (5' 10) 01/10/2025 7:33 AM BLOCK TRADER Body Mass Index 33.29 01/10/2025 7:33 AM BLOCK TRADER Plan of Treatment Health Maintenance Due Date Last Done Comments Hepatitis C Virus (HCV) Screening 1981 TdaP Immunization 1981 Hepatitis B Immunization (1 of 3 - 19+ 3-dose series) 2000 Pneumococcal Immunization Combined (1 of 2 - PCV) 2000 Human Papillomavirus (HPV) Immunization (1 - 3-dose SCDM series) 2008 Influenza Immunization (#1) 2025 SARS-COV-2 Immunization ( season) 2025 06/14/2021, 05/21/2021, 02/16/2021, Additional history exists Respiratory Syncytial Virus (RSV) Immunization (Adult) (1 - 1-dose 75+ series) 2056 Meningococcal Immunization (ACWY) Aged Out No longer eligible based on patient's age to complete this topic Rotavirus Immunization Aged Out No lo nger eligible based on patient's age to complete this topic Insurance [facility] [[email or web address]] Care Teams Supervisor Decorating Relationship Specialty Start Date End Date Arcadio Francis MD PCP - General Internal Medicine 12/16/24
--- NOTE | 2025-09-27 09:03 | WPDHPUPDATE1 ---
History and Physical Update Update Date/Time: 09/27/25 09:03 History and Physical has been reviewed, including an updated exam of the patient. There are NO changes in the patient's condition. Risks, benefits, and alternatives have been discussed and questions answered. Patient agrees to proceed with procedure.
--- NOTE | 2025-09-27 09:04 | P.OP_ITS ---
Procedure Note - Detailed Date of Procedure 09/27/25 Pre-op Diagnosis cervical spondylosis Post-op Diagnosis Same Procedure Performed Diagnostic Bilateral Cervical Medial Branch Blocks at C2-3, C3, C4 Blocking the Bilateral C2-3, C3-4 Facet Joints Under Fluoroscopic Guidance and with Contrast Control (4 levels blocked). Surgeon Jonathon Chappell MD Industrial Health Engineer None. Anesthesia Local Description of Procedure INFORMED CONSENT: Risks, benefits and alternatives to the procedure were discussed in detail with the patient who expressed explicit understanding and consent to proceed. Patient was informed verbally and in written form regarding the risks associated with the procedure including the low risk of serious infection, bleeding/bruising, allergic reaction, nerve or organ injury, paralysis, procedural site pain or discomfort, worsening pain and/or mobility, failure to treat and/or disfigurement. The patient expressed explicit understanding and consent to proceed. All materials required for the procedure were available prior to procedure start. Site and side was marked prior to procedure and confirmed in the presence of the patient. PROCEDURE IN DETAIL: The patient was brought to the procedural suite and placed in the left lateral decubitus position with head stabilized. Patient was made comfortable with use of pillows under the head and between the knees and ankles. Skin overlying the injection site on the affected side was prepared broadly with tinted 3ml ChloraPrep applicator and draped in a sterile manner. Aseptic technique was used throughout. The endplates of the vertebral bodies at the site(s) of interest were aligned in the lateral fluoroscopic view relative to the patient. Image was optimized for visualization of the pars interarticularis at each target site. Local anesthesia was established by infiltration with appr oximately 5 mL of 1% lidocaine via a 1-1/2 inch 27- gauge needle. A 25-gauge 3.5 inch Quincke spinal needle was advanced until the needle tip contacted the periosteum of the pars interarticularis at the target site, the right C2-3 medial branch. AP view was utilized to confirm the appropriate placement of the needle tip just lateral to the periosteum at the center point of the pars interarticularis. In the lateral view, 0.25 mL of Omnipaque 300 contrast medium was injected after negative aspiration for CSF, blood or other bodily fluid, showing appropriate extra-articular spread of contrast without evidence of intravascular, foraminal or intrathecal placement. A 0.25 mL solution of 0.5% PF bupivacaine was injected after negative repeat aspiration. Appropriate spread of the injectate was confirmed with washout of previously injected contrast. No parasthesias were elicited. Needle was removed completely intact without difficulty. The same procedure was repeated for all additional intended levels/structures treated on the ipsilateral side, the right C3, C4 medial branches with identical methodology modified to compensate for different location, with similar results and no evidence of complication. The same procedure was then repeated for all additional intended levels/structures treated on the contralateral side, the left C2-3, C3, C4 medial branches, with identical methodology and positioning modified to compensate for the contralateral location, with similar results and no evidence of complication. Images were saved and documented in the patient chart. Patient's skin was cleaned and sterile bandage applied. The patient tolerated the procedure well. The patient was transported to the recovery area in stable condition where they were observed for an appropriate amount of time prior to discharge, without evidence of complication. Patient was instructed on the appropriate completion of a pain diary over the next 12-24 hours. The patient was instructed to avoid excessive activity for the next 48 hours, including climbing and frequent use of stairs. Showers only for 48 hours. They were instructed not to drive or operate heavy machinery for 24 hours. They are to monitor for severe headaches, fevers, chills, night sweats, erythema/swelling at the site or any other signs of infection, bleeding/bruising, bowel or bladder changes as well as new pain, weakness or num bness in the upper or lower extremity. Should they notice these changes, they are instructed to call our office immediately or report directly to the nearest Emergency Department if no answer or if after posted office hours. COMPLICATIONS: None. COMMENTS: None. CONTRAST WASTED: 29.25mL Omnipaque 300. Complications No immediate complications Condition Stable Disposition Same day [facility] Billing Surgery - Charge Forward: Surgery Billing
[2025-09-27 09:14] VITALS: BP 128/81; PULSE 70; TEMP 36.9; O2SAT 95; BMI 36.6
[2025-09-27 10:00] VITALS: BP 131/85; PULSE 74; RESP 16; O2SAT 94
[2025-09-27] MEDS: BUPivacaine HCL 0.5% 10 ML AMP 5 ML INFILTRATE (10:03)
[2025-09-27 10:18] VITALS: BP 122/66; PULSE 80; RESP 16; O2SAT 96
[2025-09-27 10:23] VITALS: BP 126/82; PULSE 74; RESP 16; O2SAT 95
== END 2025-09-27 10:38 | disposition home or self-care (01) ==
PROVIDERS: PCP Family Medicine; Visit Provider Anesthesiology Pain Medicine
PROC: (CPT 64490; principal; 2025-09-27 09:30)
DX: M47.812 Spondylosis without myelopathy or radiculopathy, cervical region (principal); K21.9 Gastro-esophageal reflux disease without esophagitis; I45.10 Unspecified right bundle-branch block; F41.8 Other specified anxiety disorders; F17.210 Nicotine dependence, cigarettes, uncomplicated; Z79.51 Long term (current) use of inhaled steroids; Z79.1 Long term (current) use of non-steroidal anti-inflammatories (NSAID); Z98.890 Other specified postprocedural states; Z90.49 Acquired absence of other specified parts of digestive tract; Z80.3 Family history of malignant neoplasm of breast; Z80.0 Family history of malignant neoplasm of digestive organs; Z82.49 Family history of ischemic heart disease and other diseases of the circulatory system
CPT/HCPCS: 64490; 64491 ×2; 64492 ×2; 99199; Q9965